=== PATIENT | female | born 1940 | race Caucasian/White ===

== ENCOUNTER 2023-08-21 09:02 | Outpatient (AMB) | payer MEDICARE, SELFPAY ==
--- NOTE | 2023-08-21 09:00 | A.OFFPC_ITS ---
Vital Signs 08/21/23 09:13 Height 5 ft 1 in Weight 199 lb 4 oz BMI 37.6 BP 120/64 Blood Pressure Location Lt brachial Position Sitting Respiration 12 Pulse 88 Pulse Source Pulse Oximeter Temp 97.8 F Pulse Oximetry (%) 95 Oxygen Delivery Method Room Air Intake Visit Reasons: KEVIN from [facility] Intake Note: patient here for new patient visit. 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 Is last menstrual period known: No Post menopausal: No Patient : No Allergies No Known Allergies Allergy (Verified 08/21/23 09:08) Tobacco use date assessed: 08/21/23 Fall risk assessment: 1 Fall in past year Dental Screening Dental Screen Date: 08/21/23 Did you have a dental visit in the last 12 months?: Yes Did you have a dental problem in the last 6 months where you did not have access to dental care?: No Was dental information given to patient?: Patient has dentist HPI HPI Comments History of Present Illness Details This is an 82-year-old female with a past medical history of hypertension, hyperlipidemia, IFG, biliary ductal dilatation, elevated alkaline phosphatase, depression and endometrial cancer who presents to transfer from [facility] primary care. I received limited medical records with some of her diagnostic testing. She is doing well since her last visit in May. Her back has not been bothering her very much. She is on [place] as needed for pain. She also receives Zanaflex to take as needed for flares when she gets muscle spasms. She endorses a history of back pain since 1996. In the past she sought treatment at [facility]. She saw Dr. Bernal. She did physical therapy. 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 She has been fatigued for the past month. During the past week it has improved, but she does not feel back to her baseline. She started taking a B12 supplement, and she thinks it helped. She has a history of B12 deficiency. No fevers, chills, abdominal pain, chest pain or dizziness. She has an appointment with [facility] in November to follow up on elevated alkaline phosphatase level and biliary ductal dilatation. She is on Cymbalta for depression and chronic pain. She feels well on the medication. Hypertension is treated with losartan 100 mg daily. This is well-controlled. Hyperlipidemia is treated with simvastatin 40 mg at bedtime. Her last LDL was 117. Hypothyroidism is treated with 75 mcg daily of levothyroxine. Her TSH was 3.98 in March 2023. Reviewed external labs 04/18/2023: Hemoglobin A1c 5.5% Glucose 102 Creatinine 1.2 GFR 47 Alkaline phosphatase 191 AST 29 ALT 33 Total cholesterol 217 Triglycerides 195 HDL 61 LDL 117 TSH 3.98 WBC 7.7 RBC 4.59 Hemoglobin 13.7 Hematocrit 43.8 Platelet count 433 She had a CTA in 2022 which showed a 1.3 mm outpouching of contrast in the supraclinoid right ICA that could represent a small communicating artery or tiny aneurysm. There was no hemodynamically significant stenosis. She saw Neurosurgery to discuss the possible aneurysm. It was decided to pursue no further follow-up or intervention due to the low risk of rupture. [facility] Medical History (Updated 08/21/23 @ 13:45 by EFRÍAN Granado) Severe obesity (BMI 35.0-39.9) with comorbidity Chronic back pain Osteoarthritis of left knee Hypothyroidism (acquired) Depression History of herpes labialis History of endometrial cancer IFG (impaired fasting glucose) Elevated alkaline phosphatase level Common bile duct dilation Pure hypercholesterolemia Essential hypertension Surgical History (Updated 08/21/23 @ 13:05 by EFRAÍN Granado) History of tonsillectomy History of knee replacement History of cataract surgery Social History Housing: House Patient Tobacco Use Status: Former Tobacco user (40 years ago) Tobacco use type: Cigarette e-Cigarette/Vaping Use: Never Used service: No Current occupational status: retired Current occupational exposures/hazards: No Cognitive needs: No Hearing needs: No Vision needs: Yes Questionnaire PHQ-9 Over the last 2 weeks, how often have you been bothered by any of the following problems? 1. Little interest or pleasure in doing things: several days 2. Feeling down, depressed, or hopeless: not at all 3. Trouble falling or staying asleep, or sleeping too much: several days 4. Feeling tired or having little energy: several days 5. Poor appetite or overeating: not at all 6. Feeling bad about yourself - or that you are a failure or have let yourself or your family down: not at all 7. Trouble concentrating on things, such as reading the newspaper or watching television: not at all 8. Moving or speaking so slowly that other people could have noticed. Or the opposite - being so fidgety or restless that you have been moving around a lot more than usual: not at all 9. Thoughts that you would be better off or of hurting yourself in some way: not at all Total score: 3 Depression Screening Interpretation: Negative Depression Screening Done: Yes 77761 - PHQ-9 Billing: Yes Source: Developed by Drs. Ike Faustin, Katelyn Barrera, Bright Jeffery and colleagues, with an educational heather from [employer]. Thrive Questionnaire Date Thrive assessed: 08/21/23 I am a: Patient What is your living situation today?: I have a steady place to live Within the past 12 months, did the food you bought not last and you didn't have the money to get more?: Never true Within the past 12 months, did you worry whether your food would run out before you got money to buy more?: Never true Do you have trouble paying for medicines?: No Do you have trouble getting transportation to medical appointments?: No Do you have trouble paying your heating and electricity bill?: No Do you have trouble taking care of your child, family member or friend?: No Do you have trouble with day-to-day activities such as bathing, preparing meals, shopping, managing finances, etc.?: No Are you currently unemployed and looking for a job?: No Are you interested in more education?: No Please select the resources that you would like help with: None Currently or been in a relationship where the following occur: No concerns reported THRIVE Score: 0 AUDIT C Alcohol Use Questionnaire (AUDIT-C) 1. How often do you have a drink containing alcohol?: 2-4 times a month 2. How many drinks containing alcohol do you have on a typical day when you are drinking?: 1 or 2 3. How often do you have six or more drinks on one occasion?: Never Total Score: 2 CORAL-7 AMB Questionnaire CORAL-7 Date CORAL - 7 assessed: 08/21/23 Feeling nervous, anxious, or on edge: 0 = Not at all Not being able to stop or control worryin = Not at all Worrying too much about different things: 0 = Not at all Trouble relaxin = Not at all Being so restless that it is hard to sit still: 0 = Not at all Becoming easily annoyed or irritable: 0 = Not at all Feeling afraid as if something awful might happen: 0 = Not at all Total CORAL-7 score (0-4 normal; 5-9 mild; 10-14 moderate; 15-21 severe): 0 Source: Developed by Drs. Ike Faustin, Katelyn Barrera, Bright Jeffery and colleagues, with an educational heather from [employer]. CORAL-7 Assessment Billing CORAL-7 Assessment Tool: CORAL-7 Assessment 19377 Review of Systems Const Details: Constitutional: No unexplained weight loss, fever, chills or night sweats. Eyes: No vision changes, blurry vision, double vision, eye pain, eye redness, eye discharge. ENT: No hearing loss, sneezing, congestion, runny nose or sore throat. Respiratory: No shortness of breath, cough or sputum production. Cardiovascular: No chest pain, chest pressure or chest discomfort. No palpitations or pedal edema. Gastrointestinal: No anorexia, nausea, vomiting or diarrhea. No abdominal pain or blood in stool. Genitourinary: No dysuria, hematuria, urinary frequency. Neurologic: No headache, dizziness, syncope Hematologic/Lymphatics: No bleeding or bruising. Skin: No rash or tick bites. Psychiatric: No depression or anxiety. No SI/HI. Physical exam (Primary Care) Vital Signs: Last Vital Signs Temp 97.8 F 08/21/23 09:13 Pulse 88 08/21/23 09:13 Resp 12 08/21/23 09:13 BP 120/64 08/21/23 09:13 Pulse Ox 95 08/21/23 09:13 Oxygen Delivery Method Room Air 08/21/23 09:13 BMI result Body Mass Index 37.6 Tobacco/Smoking Status: Tobacco use Status Tobacco use date assessed 08/21/23 08/21/23 09:13 Patient Tobacco Use Status Former Tobacco user (40 08/21/23 09:13 years ago) Tobacco use type Cigarette 08/21/23 09:13 e-Cigarette/Vaping Use Never Used 08/21/23 09:13 PHQ-9: PHQ-9 Score PHQ-9: Total score 3 08/21/23 09:31 Depression Screening Interpretation: Negative Thrive Assessment: Date of Thrive Assessment Date Thrive assessed 08/21/23 08/21/23 09:24 Currently or been in a relationship where the following occur: No concerns reported Const Other: Constitutional: Alert, in no distress. Eyes: Pupils are equal, round and reactive to light. Extraocular muscles intact. Neck: Supple, Full range of motion. No lymphadenopathy. Respiratory: Clear to auscultation. Cardiovascular: S1 S2 regular. No murmurs. Gastrointestinal: Abdomen soft, non-tender, non-distended. Normal bowel sounds. No palpable masses. Genitourinary: No costovertebral angle tenderness. Neurologic: No focal neurological deficits. Skin: No rashes Extremities: Warm and well perfused. No clubbing, cyanosis or edema. Psychiatric: Normal mood and affect Assessment and Plan Assessment & Plan (1) Fatigue: Code(s): R53.83 - Other fatigue Plan: She improved, but she has not back to baseline. Ordered labs to evaluate fatigue. (2) IFG (impaired fasting glucose): Comment: Last hemoglobin A1c within normal. Code(s): R73.01 - Impaired fasting glucose (3) Common bile duct dilation: Comment: Follow up as planned with Gastroenterology. Code(s): K83.8 - Other specified diseases of biliary tract (4) Elevated alkaline phosphatase level: Comment: See 3. Repeat labs. Code(s): R74.8 - Abnormal levels of other serum enzymes (5) Pure hypercholesterolemia: Comment: Continue simvastatin. Code(s): E78.00 - Pure hypercholesterolemia, unspecified (6) Essential hypertension: Comment: Controlled. Continue losartan. Code(s): I10 - Essential (primary) hypertension (7) Hypothyroidism (acquired): Code(s): E03.9 - Hypothyroidism, unspecified Plan: Continue levothyroxine. Check TSH. Orders: Orders TSH reflex Free T4 Today E66.9 - Obesity, unspecified, M85.80 - Other specified disorders of bone density and structure, unspecified site, R53.83 - Other fatigue Hemoglobin A1c Today M85.80 - Other specified disorders of bone density and structure, unspecified site, R53.83 - Other fatigue Comprehensive Met. Panel Today M85.80 - Other specified disorders of bone density and structure, unspecified site, R53.83 - Other fatigue Vitamin B12 Today M85.80 - Other specified disorders of bone density and structure, unspecified site, R53.83 - Other fatigue Urine Culture Today M85.80 - Other specified disorders of bone density and structure, unspecified site, R53.83 - Other fatigue UA w Microscopic Today M85.80 - Other specified disorders of bone density and structure, unspecified site, R53.83 - Other fatigue Lyme IgG/IgM w/reflex to WB Today M85.80 - Other specified disorders of bone density and structure, unspecified site, R53.83 - Other fatigue Complete Blood Count Man Dif Today M85.80 - Other specified disorders of bone density and structure, unspecified site, R53.83 - Other fatigue Vitamin D 1,25 dihydroxy Today M85.80 - Other specified disorders of bone density and structure, unspecified site, R53.83 - Other fatigue Medications: New duloxetine 30 mg PO DAILY 90 caps 3RF levothyroxine 75 mcg PO DAILY 90 tabs 3RF simvastatin 40 mg PO BEDTIME 90 tabs 3RF tizanidine 2 mg PO Q8H PRN 30 tabs 0RF muscle spasticity losartan 100 mg PO DAILY 90 tabs 3RF Coding Level of Care Code Est Pt Level 4 (40981) Complex EM visit Add On G2211 Diagnoses Fatigue R53.83 IFG (impaired fasting glucose) R73.01 Common bile duct dilation K83.8 Elevated alkaline phosphatase level R74.8 Pure hypercholesterolemia E78.00 Essential hypertension I10 Hypothyroidism (acquired) E03.9 Additional Codes CORAL-7 Assessment Billing - CORAL-7 Assessment Tool: CORAL-7 Assessment [id number] ([id number])
[2023-08-21 09:13] VITALS: BP 120/64; PULSE 88; RESP 12; TEMP 36.6; O2SAT 95; BMI 37.6
== END 2023-08-21 09:46 | disposition home or self-care (01) ==
PROVIDERS: PCP Physician Assistant Medical; Visit Provider Physician Assistant Medical
DX: R53.83 Other fatigue (principal); R73.01 Impaired fasting glucose; K83.8 Other specified diseases of biliary tract; R74.8 Abnormal levels of other serum enzymes; E78.00 Pure hypercholesterolemia, unspecified; I10 Essential (primary) hypertension; E03.9 Hypothyroidism, unspecified
CPT/HCPCS: 99214; G2211

== ENCOUNTER 2023-08-21 09:48 | Outpatient (REF) | payer MEDICARE, SELFPAY ==
[2023-08-21 11:35] LABS: Appearance Urine Clear; Color Urine Dark Yellow; Glucose Urine UA Negative (Negative); Leukocyte Esterase Urine Trace (Negative); Nitrite Urine Negative (Negative); PH 6.5 (5.0-9.0); Specific Gravity - Urine 1.025 (1.005-1.025); UMIC TRIGGER UA YES; Urine Blood Negative (Negative); Urine Ketones Trace mg/dL (Negative); Urine Protein 30 (1+) mg/dL (Neg-Trace)
[2023-08-21 11:43] LABS: Baso%MD 0.7 %; Hemoglobin 14.3 g/dl (12.0-16.0); IG%MD 0.2 %; Lymph%MD 25.5 %; Mean Corpuscular Volume 91.1 fL (80.0-98.0); Mean Platelet Volume 9.2 fL (9.4-12.3); Mono%MD 7.1 %; Neut%MD 64.5 %; Platelet Count 414 X10*3/uL (160-400); Red Blood Count 4.61 X10*6/uL (4.20-5.50); Red Cell Distribution Width 13.7 % (11.0-16.0)
[2023-08-21 11:50] LABS: Bacteria Urine None Seen (None Seen); RBC Urine 0-2 /HPF (0-2); Squamous Epithelial Cell Urine 0-2 /HPF (0-2); WBC Urine 0-5 /HPF (0-5)
[2023-08-21 11:53] LABS: Estimated Average Glucose 108 mg/dL; Hemoglobin A1c % 5.4 % (<6.0)
[2023-08-21 12:21] LABS: Band Neutrophils Percent 1 % (3-5); Eosinophils Absolute Manual 0.1 X10*3/uL (0.0-0.4); Eosinophils Percent Manual 1 % (0-4); Lymphocytes Absolute Manual 1.7 X10*3/uL (1.2-4.9); Lymphocytes Percent Manual 21 % (20-40); Monocytes Absolute Manual 0.7 X10*3/uL (0.1-1.2); Monocytes Percent Manual 9 % (2-11); Neutrophils Absolute Manual 5.5 X10*3/uL (2.0-8.3); Neutrophils Percent Manual 68 % (45-73)
[2023-08-21 12:22] LABS: Platelet Estimate NORMAL (NORMAL); Platelet Morphology Comment NORMAL; RBC Morphology NORMAL
[2023-08-21 12:25] LABS: Alanine Aminotransferase 36 U/L (0-31); Albumin Level 3.8 g/dL (3.5-5.0); Alkaline Phosphatase 138 U/L (39-117); Anion Gap 13 (12-20); Aspartate Amino Transferase 27 U/L (5-31); Bilirubin Total 0.5 mg/dL (0.0-1.0); Blood Urea Nitrogen 19 mg/dL (9-16); Calcium 9.2 mg/dL (8.4-10.2); Carbon Dioxide 27 mmol/L (22-29); Chloride 106 mmol/L (96-108); Estimated Glomerular Filt Rate > 60; Glucose Random 101 mg/dL (60-115); Potassium 4.5 mmol/L (3.3-5.1); Sodium 141 mmol/L (135-145); Total Protein 6.9 g/dL (6.5-8.0)
[2023-08-21 12:44] LABS: TSH reflex Free T4 1.93 uIU/mL (0.32-4.0)
[2023-08-21 12:48] LABS: Vitamin B12 1316 pg/mL (200-900)
[2023-08-22 09:04] LABS: Lyme Abs Screen <0.90 index
[2023-08-26 00:54] LABS: VITAMIN D (1,25 OH) D3 44 pg/mL; Vit D (1,25-Dihydroxy) Total 44 pg/mL (18-72); Vitamin D (1,25 OH) D2 <8 pg/mL
== END 2023-08-21 09:49 | disposition home or self-care (01) ==
LOC: HO.WFDLDS 09:48
PROVIDERS: Visit Provider Physician Assistant Medical
DX: E66.9 Obesity, unspecified (principal); R53.83 Other fatigue; M85.80 Other specified disorders of bone density and structure, unspecified site
CPT/HCPCS: 36415; 80053; 81001; 82607; 82652; 83036; 84443; 85007; 85027; 86617; 86618; 87086

== ENCOUNTER 2023-10-06 10:53 | Outpatient (AMB) | payer MEDICARE, SELFPAY ==
--- NOTE | 2023-10-06 10:58 | A.OFFPC_ITS ---
Vital Signs 10/06/23 11:07 Height 5 ft 1 in Weight 199 lb 8 oz BMI 37.7 BP 122/68 Blood Pressure Location Lt brachial Position Sitting Respiration 16 Pulse 69 Pulse Source Pulse Oximeter Pulse Oximetry (%) 97 Oxygen Delivery Method Room Air Intake Visit Reasons: taper off duloxetine Intake Note: Discuss tapering off duloxetine. Patient has been off the medication for 5 days. Allergies No Known Allergies Allergy (Verified 10/06/23 11:06) Tobacco use date assessed: 08/21/23 Dental Screening Dental Screen Date: 08/21/23 HPI HPI Comments History of Present Illness Details This is an 82-year-old female with a past medical history of hypertension, hyperlipidemia, IFG, biliary ductal dilatation, elevated alkaline phosphatase, depression and endometrial cancer who presents for follow up. Since her last visit she reported fatigue since starting Cymbalta. I provided her with instructions to taper off of this medication over the phone. She stopped it 5 days ago. She feels a little off since stopping it despite the taper. Her fatigue is much better off of the medication. She does not want to take anything new at this time. Her back has not been bothering her very much. She is on [place] for pain. She also receives Zanaflex to take as needed for flares when she gets muscle spasms. She endorses a history of back pain since 1996. In the past she sought treatment at [facility]. She saw Dr. Bernal. She did physical therapy. 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 She has an appointment with [facility] in November to follow up on elevated alkaline phosphatase level and biliary ductal dilatation. She did not get contacted by [facility] to schedule the ultrasound I ordered. I put in a request to fax it again, and I gave her the number for [facility]ology to schedule it. She denies abdominal pain, nausea, vomiting, diarrhea, unexplained weight loss. Alkaline phosphatase decreased from 191-138 between 04/18/2023 and 08/21/2023. ALT mildly elevated in July at 36 and AST, albumin, total bilirubin normal. Hypertension is treated with losartan 100 mg daily. This is well-controlled. Hyperlipidemia is treated with simvastatin 40 mg at bedtime. Her last LDL was 117. Hypothyroidism is treated with 75 mcg daily of levothyroxine. Her TSH was 3.98 in March 2023. Reviewed external labs 04/18/2023: Hemoglobin A1c 5.5% Glucose 102 Creatinine 1.2 GFR 47 Alkaline phosphatase 191 AST 29 ALT 33 Total cholesterol 217 Triglycerides 195 HDL 61 LDL 117 TSH 3.98 WBC 7.7 RBC 4.59 Hemoglobin 13.7 Hematocrit 43.8 Platelet count 433 She had a CTA in 2022 which showed a 1.3 mm outpouching of contrast in the supraclinoid right ICA that could represent a small communicating artery or tiny aneurysm. There was no hemodynamically significant stenosis. She saw Neurosurgery to discuss the possible aneurysm. It was decided to pursue no further follow-up or intervention due to the low risk of rupture. ROS: Constitutional: No unexplained weight loss, fever, chills, fatigue or night sweats. Eyes: No vision changes, blurry vision, double vision Respiratory: No shortness of breath, cough or sputum production. Cardiovascular: No chest pain, chest pressure or chest discomfort. No palpitations or pedal edema. Gastrointestinal: No anorexia, nausea, vomiting or diarrhea. No abdominal pain or blood in stool. Neurologic: No headache, dizziness, syncope Hematologic/Lymphatics: No bleeding or bruising. No painful lymph nodes. Endocrine: No cold or heat intolerance. No polyuria or polydipsia. Psychiatric: No depression or anxiety. No SI/HI. Physical exam: Constitutional: Alert, in no distress. Head: Normocephalic. Eyes: Pupils are equal, round and reactive to light. Extraocular muscles intact. Neck: Supple, Full range of motion. No lymphadenopathy. Respiratory: Clear to auscultation. Cardiovascular: S1 S2 regular. No murmurs. Gastrointestinal: Abdomen soft, non-tender, non-distended. Normal bowel sounds. No palpable masses. Neurologic: No focal neurological deficits Extremities: Warm and well perfused. No clubbing, cyanosis or edema. Psychiatric: Normal mood and affect COUNT INCLUDES [facility] Medical History (Updated 10/06/23 @ 16:56 by EFRAÍN Granado) Severe obesity (BMI 35.0-39.9) with comorbidity Chronic back pain Osteoarthritis of left knee Hypothyroidism (acquired) Depression History of herpes labialis History of endometrial cancer IFG (impaired fasting glucose) Elevated alkaline phosphatase level Common bile duct dilation Pure hypercholesterolemia Essential hypertension Surgical History (Updated 08/21/23 @ 13:05 by EFRAÍN Granado) History of tonsillectomy History of knee replacement History of cataract surgery Social History Housing: House Patient Tobacco Use Status: Former Tobacco user (40 years ago) Tobacco use type: Cigarette e-Cigarette/Vaping Use: Never Used service: No Current occupational status: retired Current occupational exposures/hazards: No Cognitive needs: No Hearing needs: No Vision needs: Yes Questionnaire Thrive Questionnaire Date Thrive assessed: 08/21/23 CORAL-7 AMB Questionnaire CORAL-7 Date CORAL - 7 assessed: 08/21/23 Source: Developed by Drs. Ike Faustin, Katelyn Barrrea, Bright Jeffery and colleagues, with an educational heather from [employer]. Physical exam (Primary Care) Vital Signs: Last Vital Signs Pulse 69 10/06/23 11:07 Resp 16 10/06/23 11:07 BP 122/68 10/06/23 11:07 Pulse Ox 97 10/06/23 11:07 Oxygen Delivery Method Room Air 10/06/23 11:07 BMI result Body Mass Index 37.7 Tobacco/Smoking Status: Tobacco use Status Tobacco use date assessed 08/21/23 10/06/23 11:00 Patient Tobacco Use Status Former Tobacco user (40 10/06/23 11:00 years ago) Tobacco use type Cigarette 10/06/23 11:00 e-Cigarette/Vaping Use Never Used 10/06/23 11:00 Thrive Assessment: Date of Thrive Assessment Date Thrive assessed 08/21/23 10/06/23 11:00 Assessment and Plan Assessment & Plan (1) Chronic back pain: Code(s): M54.9 - Dorsalgia, unspecified; G89.29 - Other chronic pain Qualifiers: Back pain location: low back pain Back pain laterality: bilateral Sciatica presence: without sciatica Qualified Code(s): M54.50 - Low back pain, unspecified; G89.29 - Other chronic pain (2) Hypothyroidism (acquired): Code(s): E03.9 - Hypothyroidism, unspecified (3) IFG (impaired fasting glucose): Code(s): R73.01 - Impaired fasting glucose (4) Pure hypercholesterolemia: Code(s): E78.00 - Pure hypercholesterolemia, unspecified (5) Essential hypertension: Code(s): I10 - Essential (primary) hypertension (6) Common bile duct dilation: Code(s): K83.8 - Other specified diseases of biliary tract (7) Elevated alkaline phosphatase level: Code(s): R74.8 - Abnormal levels of other serum enzymes Plan Chronic back pain Stable at this time. She discontinued Cymbalta due to fatigue. She does not want to try new medications. She will use Zanaflex as needed for flares. Continue prescription for hydrocodone-acetaminophen. Hypothyroidism Euthyroid. Continue levothyroxine. Impaired fasting glucose Last hemoglobin A1c normal. Recommended low carb, low sugar diet. Hyperlipidemia Continue simvastatin 40 mg daily. Hypertension Controlled. Continue low-sodium diet and avoidance of caffeine. Continue losartan 100 mg daily. Elevated alkaline phosphatase, common bile duct dilatation She has follow up with Gastroenterology in November. Her alk-phos trended down which is reassuring as well as the fact that she has no symptoms at this time that are concerning. I would like her to have an ultrasound completed prior to that to recheck the appearance of the common bile duct. Order faxed to [facility]. Patient given phone number to call [facility]. Follow up in 3 months. Coding Level of Care Code Est Pt Level 4 (23059) Complex EM visit Add On G2211 Diagnoses Chronic bilateral low back pain without sciatica M54.50; G89.29 Back pain location: low back pain Back pain laterality: bilateral Sciatica presence: without sciatica Hypothyroidism (acquired) E03.9 IFG (impaired fasting glucose) R73.01 Pure hypercholesterolemia E78.00 Essential hypertension I10 Common bile duct dilation K83.8 Elevated alkaline phosphatase level R74.8
[2023-10-06 11:07] VITALS: BP 122/68; PULSE 69; RESP 16; O2SAT 97; BMI 37.7
== END 2023-10-06 11:36 | disposition home or self-care (01) ==
PROVIDERS: PCP Physician Assistant Medical; Visit Provider Physician Assistant Medical
DX: M54.50 Low back pain, unspecified (principal); G89.29 Other chronic pain; E03.9 Hypothyroidism, unspecified; R73.01 Impaired fasting glucose; E78.00 Pure hypercholesterolemia, unspecified; I10 Essential (primary) hypertension; K83.8 Other specified diseases of biliary tract; R74.8 Abnormal levels of other serum enzymes
CPT/HCPCS: 99214; G2211

== ENCOUNTER 2024-01-29 11:29 | Outpatient (AMB) | payer MEDICARE, SELFPAY ==
--- NOTE | 2024-01-29 11:43 | MHC.PC.OV ---
Vital Signs 01/29/24 11:45 01/29/24 12:02 01/29/24 12:03 Height 5 ft 1 in Weight 201 lb BMI 38.0 BP 195/75 H 166/78 H 160/78 H Blood Pressure Location Lt brachial Lt brachial Rt brachial Position Sitting Sitting Sitting Respiration 14 Pulse 67 Pulse Source Pulse Oximeter Temp 97.2 F Temp Source Skin Pulse Oximetry (%) 97 Oxygen Delivery Method Room Air Intake Visit Reasons: 3 months med follow up Intake Note: follow up on meds Laboratory Analyst Required: No Allergies No Known Allergies Allergy (Verified 01/29/24 11:45) Tobacco use date assessed: 08/21/23 Dental Screening Dental Screen Date: 08/21/23 HPI HPI Comments History of Present Illness Details This is an 83-year-old female with a past medical history of hypertension, hyperlipidemia, IFG, biliary ductal dilatation, elevated alkaline phosphatase, depression and endometrial cancer who presents for follow up. The patient says she is glad she had appointment today because she has urinary symptoms the past 2-3 days. She endorses urinary frequency, urgency and feeling some discomfort and flushing when she urinates. She has not been sleeping well. She denies fevers, chills, vomiting, flank pain, abdominal pain. She had bruising on her face today. Patient says she fell after tripping in her yard while picking up sticks in her slippers a week ago. No LOC, vision change, headache, dizziness or seizure. The bruising is improving. Her right wrist has a little sore but is also getting better, and she has no issues with daily activities. The patient's blood pressure is usually well-controlled on losartan, but it was quite elevated today initially. Again she reported not sleeping well the last 2-3 nights , and she was also anxious because of her UTI symptoms. She reports that when she thought she had a UTI it turned out to be endometrial cancer in the past and she is very worried. She denies vaginal bleeding and blood in her urine. We spoke for a while and she was given cold water to drink and her blood pressure decreased to 166/78 on her left arm and 160/78 on her right arm. Patient denied chest pain, blurry vision, headache, dizziness, numbness, weakness, tingling and shortness of breath. Chronic back pain- due to unreliable availability of Wittmann she was switched to Percocet 5-325 mg every 8 hours as needed for pain. She also receives Zanaflex to take as needed for flares when she gets muscle spasms. She endorses a history of back pain since 1996. In the past she sought treatment at [facility]. She saw Dr. Bernal. She did physical therapy. 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 Hyperlipidemia is treated with simvastatin 40 mg at bedtime. Her last LDL was 117. Hypothyroidism is treated with 75 mcg daily of levothyroxine. Her TSH was 3.98 in March 2023. She had a CTA in 2022 which showed a 1.3 mm outpouching of contrast in the supraclinoid right ICA that could represent a small communicating artery or tiny aneurysm. There was no hemodynamically significant stenosis. She saw Neurosurgery to discuss the possible aneurysm. It was decided to pursue no further follow-up or intervention due to the low risk of rupture. ROS: Constitutional: No unexplained weight loss, fever, chills, fatigue or night sweats. Eyes: No vision changes, blurry vision, double vision Respiratory: No shortness of breath, cough or sputum production. Cardiovascular: No chest pain, chest pressure or chest discomfort. No palpitations or pedal edema. Gastrointestinal: No anorexia, nausea, vomiting or diarrhea. No abdominal pain or blood in stool. Neurologic: No headache, dizziness, syncope Psychiatric: +situational anxiety today Physical exam: Constitutional: Alert, in no distress. Head: Normocephalic. Tender, half adan shaped area of light purple ecchymosis below the right eye and mild ecchymosis of the right eyelid. Eyes: Pupils are equal, round and reactive to light. Extraocular muscles intact. Neck: Supple, Full range of motion. No lymphadenopathy. Respiratory: Clear to auscultation. Cardiovascular: S1 S2 regular. No murmurs. Gastrointestinal: Abdomen soft, non-tender, non-distended. Normal bowel sounds. No palpable masses. : Absence of CVA tenderness bilaterally. Neurologic: No focal neurological deficits Extremities: Warm and well perfused. No clubbing, cyanosis or edema. Wrists nontender to palpation and full range of motion present. Psychiatric: Normal mood and affect [facility] Medical History (Updated 10/06/23 @ 16:56 by EFRAÍN Granado) Severe obesity (BMI 35.0-39.9) with comorbidity Chronic back pain Osteoarthritis of left knee Hypothyroidism (acquired) Depression History of herpes labialis History of endometrial cancer IFG (impaired fasting glucose) Elevated alkaline phosphatase level Common bile duct dilation Pure hypercholesterolemia Essential hypertension Surgical History (Updated 08/21/23 @ 13:05 by EFRAÍN Granado) History of tonsillectomy History of knee replacement History of cataract surgery Social History Housing: House Patient Tobacco Use Status: Former Tobacco user (40 years ago) Tobacco use type: Cigarette e-Cigarette/Vaping Use: Never Used service: No Current occupational status: retired Current occupational exposures/hazards: No Cognitive needs: No Hearing needs: No Vision needs: Yes Questionnaire PHQ-9 Over the last 2 weeks, how often have you been bothered by any of the following problems? 1. Little interest or pleasure in doing things: not at all 2. Feeling down, depressed, or hopeless: not at all 3. Trouble falling or staying asleep, or sleeping too much: not at all 4. Feeling tired or having little energy: several days 5. Poor appetite or overeating: not at all 6. Feeling bad about yourself - or that you are a failure or have let yourself or your family down: not at all 7. Trouble concentrating on things, such as reading the newspaper or watching television: not at all 8. Moving or speaking so slowly that other people could have noticed. Or the opposite - being so fidgety or restless that you have been moving around a lot more than usual: not at all 9. Thoughts that you would be better off or of hurting yourself in some way: not at all Total score: 1 36533 - PHQ-9 Billing: Yes Source: Developed by Drs. Ike Faustin, Katelyn Barrera, Bright Jeffery and colleagues, with an educational heather from [employer] Thrive Questionnaire Date Thrive assessed: 01/29/24 I am a: Patient What is your living situation today?: I have a steady place to live Within the past 12 months, did the food you bought not last and you didn't have the money to get more?: Never true Within the past 12 months, did you worry whether your food would run out before you got money to buy more?: Never true Do you have trouble paying for medicines?: No Do you have trouble getting transportation to medical appointments?: No Do you have trouble paying your heating and electricity bill?: No Do you have trouble taking care of your child, family member or friend?: No Do you have trouble with day-to-day activities such as bathing, preparing meals, shopping, managing finances, etc.?: No Are you currently unemployed and looking for a job?: No Are you interested in more education?: No Please select the resources that you would like help with: None Currently or been in a relationship where the following occur: No concerns reported THRIVE Score: 0 AUDIT C Alcohol Use Questionnaire (AUDIT-C) 1. How often do you have a drink containing alcohol?: Monthly or less 2. How many drinks containing alcohol do you have on a typical day when you are drinking?: 1 or 2 3. How often do you have six or more drinks on one occasion?: Never Total Score: 1 CORAL-7 AMB Questionnaire CORAL-7 Date CORAL - 7 assessed: 01/29/24 Feeling nervous, anxious, or on edge: 0 = Not at all Not being able to stop or control worryin = Not at all Worrying too much about different things: 0 = Not at all Trouble relaxin = Not at all Being so restless that it is hard to sit still: 0 = Not at all Becoming easily annoyed or irritable: 0 = Not at all Feeling afraid as if something awful might happen: 0 = Not at all Total CORAL-7 score (0-4 normal; 5-9 mild; 10-14 moderate; 15-21 severe): 0 Source: Developed by Drs. Ike Faustin, Katelyn Barrera, Bright Jeffery and colleagues, with an educational heather from [employer] CORAL-7 Assessment Billing CORAL-7 Assessment Tool: CORAL-7 Assessment 25448 Physical exam (Primary Care) Vital Signs: Last Vital Signs Temp 97.2 F 01/29/24 11:45 Pulse 67 01/29/24 11:45 Resp 14 01/29/24 11:45 BP 195/75 H 01/29/24 11:45 Pulse Ox 97 01/29/24 11:45 Oxygen Delivery Method Room Air 01/29/24 11:45 BMI result Body Mass Index 38.0 Tobacco/Smoking Status: Tobacco use Status Tobacco use date assessed 08/21/23 01/29/24 11:45 Patient Tobacco Use Status Former Tobacco user (40 01/29/24 11:45 years ago) Tobacco use type Cigarette 01/29/24 11:45 e-Cigarette/Vaping Use Never Used 01/29/24 11:45 PHQ-9: PHQ-9 Score PHQ-9: Total score 1 01/29/24 11:45 Thrive Assessment: Date of Thrive Assessment Date Thrive assessed 01/29/24 01/29/24 11:45 Currently or been in a relationship where the following occur: No concerns reported Results AMB Urinalysis Dipstick UR Leukocytes Negative Last Edit by Zander Alanis MA on 01/29/24 12:30 UR Nitrite Negative Last Edit by Zander Alanis MA on 01/29/24 12:30 UR Urobilinogen Normal Last Edit by Zander Alanis MA on 01/29/24 12:30 UR Protein Negative Last Edit by Zander Alanis MA on 01/29/24 12:30 UR Ph 5.5 Last Edit by Zander Alanis MA on 01/29/24 12:30 UR Blood Trace Last Edit by Zander Alanis MA on 01/29/24 12:30 UR Specific [place] 1.020 Last Edit by Zander Alanis MA on 01/29/24 12:30 UR Ketone Negative Last Edit by Zander Alanis MA on 01/29/24 12:30 UR Bilirubin Negative Last Edit by Zander Alanis MA on 01/29/24 12:30 UR Glucose Negative Last Edit by Zander Alanis MA on 01/29/24 12:30 Coding Level of Care Code Est Pt Level 4 (07192) Complex EM visit Add On G2211 Diagnoses UTI symptoms R39.9 Essential hypertension I10 Fall W19.XXXA Additional Codes CORAL-7 Assessment Billing - CORAL-7 Assessment Tool: CORAL-7 Assessment 01417 ([id number]) PHQ-9 - 27412 - PHQ-9 Billing: Yes ([id number]) Assessment & Plan Assessment & Plan (1) UTI symptoms: Code(s): R39.9 - Unspecified symptoms and signs involving the genitourinary system Plan: Patient's urine dip is positive for microscopic blood and given symptoms she will be started on antibiotics for urinary tract infection. Take Macrobid 1 pill twice daily. Complete entire course of medication unless otherwise directed. She has probiotic +cranberry at home that she will start. Warning signs reviewed with the patient including progression of UTI symptoms to flank pain, fevers, chills, nausea, vomiting and to go to the ER if she develops any of the symptoms. She will follow up with me in 10 days. (2) Essential hypertension: Code(s): I10 - Essential (primary) hypertension Category: Medical Plan: Her blood pressure is elevated today which may be due to anxiety over her symptoms and poor sleep the last few days. She will continue losartan 100 mg and follow up in 10 days for reassessment. Recommended avoidance of caffeine and a low-sodium diet. Warning signs warranting ER evaluation reviewed with the patient. (3) Fall: Code(s): W19.XXXA - Unspecified fall, initial encounter Plan: The patient had no serious injury. Fall prevention reviewed. If she is going to be working outside she needs to wear supportive shoes rather than slippers. She understands. Orders: Orders AMB Urinalysis Dipstick Today Z13.9 - Encounter for screening, unspecified Basic Metabolic Panel Today I10 - Essential (primary) hypertension, R39.9 - Unspecified symptoms and signs involving the genitourinary system Complete Blood Count Auto Diff Today I10 - Essential (primary) hypertension, R39.9 - Unspecified symptoms and signs involving the genitourinary system Hemoglobin A1c Today E11.9 - Type 2 diabetes mellitus without complications, I10 - Essential (primary) hypertension, R39.9 - Unspecified symptoms and signs involving the genitourinary system Urine Culture Today R39.9 - Unspecified symptoms and signs involving the genitourinary system TSH reflex Free T4 Today E03.9 - Hypothyroidism, unspecified UA w Microscopic Today R39.9 - Unspecified symptoms and signs involving the genitourinary system Medications: New nitrofurantoin monohyd/m-cryst 100 mg (Macrobid) must administer with a meal/food 100 mg PO Q12H 7 days 14 caps 0RF
[2024-01-29 11:45] VITALS: BP 195/75; PULSE 67; RESP 14; TEMP 36.2; O2SAT 97; BMI 38.0
[2024-01-29 12:02] VITALS: BP 166/78
[2024-01-29 12:03] VITALS: BP 160/78
== END 2024-01-29 12:35 | disposition home or self-care (01) ==
PROVIDERS: PCP Physician Assistant Medical; Visit Provider Physician Assistant Medical
DX: R39.9 Unspecified symptoms and signs involving the genitourinary system (principal); I10 Essential (primary) hypertension; W19.XXXA Unspecified fall, initial encounter; Z13.9 Encounter for screening, unspecified

== ENCOUNTER 2024-01-29 11:29 | Outpatient (REF) | payer MEDICARE, SELFPAY ==
[2024-01-29 17:55] LABS: Appearance Urine Clear; Color Urine Dark Yellow; Glucose Urine UA Negative (Negative); Leukocyte Esterase Urine Moderate (2+) (Negative); Nitrite Urine Negative (Negative); PH 5.5 (5.0-9.0); UMIC TRIGGER UA YES; Urine Blood Small (1+) (Negative); Urine Ketones Negative (Negative); Urine Protein Negative (Neg-Trace)
[2024-01-29 19:28] LABS: Bacteria Urine None Seen (None Seen); Hyaline Casts Urine 0-2 /LPF (0-2); Squamous Epithelial Cell Urine 0-2 /HPF (0-2); WBC Urine >50 /HPF (0-5)
== END 2024-01-29 11:30 | disposition home or self-care (01) ==
LOC: HO.LNP 11:29
PROVIDERS: PCP Physician Assistant Medical; Visit Provider Physician Assistant Medical
DX: R31.29 Other microscopic hematuria (principal); I10 Essential (primary) hypertension; E11.9 Type 2 diabetes mellitus without complications; E03.9 Hypothyroidism, unspecified; Z79.899 Other long term (current) drug therapy; Z91.81 History of falling
CPT/HCPCS: 36415; 80048; 81001; 81002; 83036; 84443; 85025; 87086; 96127; 99212

== ENCOUNTER 2024-01-29 12:52 | Outpatient (REF) | payer MEDICARE, SELFPAY ==
[2024-01-29 14:01] LABS: MANUAL DIFF FLAG NO
[2024-01-29 14:07] LABS: Basophils Absolute Auto 0.1 X10*3/uL (0.0-0.2); Basophils Percent Auto 0.5 % (0-2); Eosinophils Absolute Auto 0.2 X10*3/uL (0.0-0.4); Eosinophils Percent Auto 1.7 % (0-4); Hematocrit 39.6 % (37.0-47.0); Hemoglobin 13.5 g/dl (12.0-16.0); Imm Gran Abs Auto 0.03 X10*3/uL (0.00-0.03); Imm Gran Pct Auto 0.3 % (0.0-0.4); Lymphocytes Absolute Auto 2.5 X10*3/uL (1.2-4.9); Lymphocytes Percent Auto 25.6 % (20-40); Mean Corpuscular HGB Conc 34.1 g/dl (31.0-35.0); Mean Corpuscular Hemoglobin 30.7 pg (27.0-33.0); Mean Platelet Volume 8.9 fL (9.4-12.3); Monocytes Absolute Auto 0.6 X10*3/uL (0.1-1.2); Monocytes Percent Auto 5.6 % (2-11); Neutrophils Absolute Auto 6.5 x10*3/uL (2.0-8.3); Neutrophils Percent Auto 66.3 % (45-73); Platelet Count 373 X10*3/uL (160-400); Red Cell Distribution Width 13.6 % (11.0-16.0); White Blood Count 9.8 X10*3/uL (4.8-10.8)
[2024-01-29 14:24] LABS: Estimated Average Glucose 105 mg/dL; Hemoglobin A1c % 5.3 % (<6.0); Total Hemoglobin (HGBA1C) 3367.6978 umol/L
[2024-01-29 14:30] LABS: Anion Gap 13 (12-20); Blood Urea Nitrogen 17 mg/dL (9-16); Calcium 9.7 mg/dL (8.4-10.2); Carbon Dioxide 27 mmol/L (22-29); Chloride 105 mmol/L (96-108); Estimated Glomerular Filt Rate > 60; Glucose Random 94 mg/dL (60-115); Potassium 4.4 mmol/L (3.3-5.1); Sodium 141 mmol/L (135-145)
[2024-01-29 14:41] LABS: Appearance Urine Clear; Color Urine Yellow; Glucose Urine UA Negative (Negative); Leukocyte Esterase Urine Moderate (2+) (Negative); Nitrite Urine Negative (Negative); PH 5.5 (5.0-9.0); Specific Gravity - Urine 1.015 (1.005-1.025); UMIC TRIGGER UA YES; Urine Blood Trace (Negative); Urine Ketones Negative (Negative); Urine Protein Negative (Neg-Trace)
[2024-01-29 14:46] LABS: Bacteria Urine None Seen (None Seen); Hyaline Casts Urine 0-2 /LPF (0-2); Squamous Epithelial Cell Urine 0-2 /HPF (0-2); WBC Urine >50 /HPF (0-5)
[2024-01-29 14:46] LABS: TSH reflex Free T4 1.43 uIU/mL (0.32-4.0)
== END 2024-01-29 12:53 | disposition home or self-care (01) ==
LOC: HO.WFDLDS 12:52
PROVIDERS: Visit Provider Physician Assistant Medical
DX: Z13.89 Encounter for screening for other disorder (principal)
CPT/HCPCS: 36415; 80048; 81001; 83036; 84443; 85025; 87086

== ENCOUNTER 2024-02-09 11:12 | Outpatient (REF) | payer MEDICARE, SELFPAY ==
[2024-02-09 14:18] LABS: Appearance Urine Cloudy; Color Urine Dark Yellow; Glucose Urine UA Negative (Negative); Leukocyte Esterase Urine Negative (Negative); Nitrite Urine Negative (Negative); PH 5.5 (5.0-9.0); Urine Blood Negative (Negative); Urine Ketones Negative (Negative); Urine Protein Negative (Neg-Trace)
[2024-02-09 14:23] LABS: Bacteria Urine None Seen (None Seen); Hyaline Casts Urine 0-2 /LPF (0-2); RBC Urine 0-2 /HPF (0-2); Squamous Epithelial Cell Urine 0-2 /HPF (0-2); WBC Urine 0-5 /HPF (0-5)
== END 2024-02-09 11:13 | disposition home or self-care (01) ==
LOC: HO.LNP 11:12
PROVIDERS: PCP Physician Assistant Medical; Visit Provider Physician Assistant Medical
DX: R35.0 Frequency of micturition (principal); R39.9 Unspecified symptoms and signs involving the genitourinary system; I10 Essential (primary) hypertension
CPT/HCPCS: 81001; 81002; 87086; 99212

== ENCOUNTER 2024-02-09 11:12 | Outpatient (AMB) | payer MEDICARE, SELFPAY ==
--- NOTE | 2024-02-09 11:30 | A.OFFPC_ITS ---
Vital Signs 02/09/24 11:34 Height 5 ft 1 in Weight 202 lb 2 oz BMI 38.2 BP 142/78 H Blood Pressure Location Rt brachial Position Sitting Respiration 14 Pulse 66 Pulse Source Pulse Oximeter Pulse Oximetry (%) 97 Oxygen Delivery Method Room Air Intake Visit Reasons: follow up HTN and UTI Intake Note: follow up on htn and uti, patient has no uti sx Electrocardiogram Technician Required: No Allergies No Known Allergies Allergy (Verified 02/09/24 11:30) Tobacco use date assessed: 08/21/23 Fall risk assessment: 1 Fall in past year Last assessed Fall Risk: 02/09/24 Dental Screening Dental Screen Date: 08/21/23 Did you have a dental visit in the last 12 months?: Yes Did you have a dental problem in the last 6 months where you did not have access to dental care?: No Was dental information given to patient?: Patient has dentist HPI HPI Comments History of Present Illness Details This is an 83-year-old female with a past medical history of hypertension, hyperlipidemia, IFG, biliary ductal dilatation, elevated alkaline phosphatase, depression and endometrial cancer presents for re-evaluation after being seen on 01/29/2024 for UTI symptoms and elevated blood pressure that day. Urinalysis was positive for leuks and blood. Urine culture showed urogenital contamination. She was treated with a 7 day course of nitrofurantoin. She reports all of her symptoms have since resolved, and she completed the antibiotics. She denies vaginal bleeding. She feels less anxious today, but she was still a bit stressed about coming into the office. Her blood pressure is 142/78. She is taking losartan 100 mg daily for hypertension. No headaches, chest pain, dizziness or blurry vision. ROS: Constitutional: No unexplained weight loss, fever, chills, fatigue or night sweats. Eyes: No vision changes, blurry vision, double vision Respiratory: No shortness of breath Cardiovascular: No chest pain Gastrointestinal: No anorexia, nausea, vomiting or diarrhea. No abdominal pain Genitourinary: No dysuria, hematuria, urinary frequency. Neurologic: No headache, dizziness, syncope Endocrine: No cold or heat intolerance. No polyuria or polydipsia. Physical exam: Constitutional: Alert, in no distress. Respiratory: Clear to auscultation. Cardiovascular: S1 S2 regular. No murmurs. Gastrointestinal: Abdomen soft, non-tender, non-distended. Normal bowel sounds. No palpable masses. Genitourinary: No costovertebral angle tenderness. Neurologic: No focal neurological deficits. Extremities: Warm and well perfused. No clubbing, cyanosis or edema [facility] Medical History (Updated 02/09/24 @ 13:39 by EFRAÍN Granado) Urinary frequency Severe obesity (BMI 35.0-39.9) with comorbidity Chronic back pain Osteoarthritis of left knee Hypothyroidism (acquired) Depression History of herpes labialis History of endometrial cancer IFG (impaired fasting glucose) Elevated alkaline phosphatase level Common bile duct dilation Pure hypercholesterolemia Essential hypertension Surgical History (Updated 08/21/23 @ 13:05 by EFRAÍN Granado) History of tonsillectomy History of knee replacement History of cataract surgery Social History Housing: House Patient Tobacco Use Status: Former Tobacco user (40 years ago) Tobacco use type: Cigarette e-Cigarette/Vaping Use: Never Used service: No Current occupational status: retired Current occupational exposures/hazards: No Cognitive needs: No Hearing needs: No Vision needs: Yes Questionnaire PHQ-9 Over the last 2 weeks, how often have you been bothered by any of the following problems? 35779 - PHQ-9 Billing: Patient declined-do not bill Source: Developed by Drs. Ike Faustin, Katelyn Barrera, Bright Jeffery and colleagues, with an educational heather from [employer]. Thrive Questionnaire Date Thrive assessed: 02/09/24 I am a: Patient What is your living situation today?: I have a steady place to live Within the past 12 months, did the food you bought not last and you didn't have the money to get more?: Never true Within the past 12 months, did you worry whether your food would run out before you got money to buy more?: Never true Do you have trouble paying for medicines?: No Do you have trouble getting transportation to medical appointments?: No Do you have trouble paying your heating and electricity bill?: No Do you have trouble taking care of your child, family member or friend?: No Do you have trouble with day-to-day activities such as bathing, preparing meals, shopping, managing finances, etc.?: No Are you currently unemployed and looking for a job?: No Are you interested in more education?: No Please select the resources that you would like help with: None Currently or been in a relationship where the following occur: No concerns reported THRIVE Score: 0 CORAL-7 AMB Questionnaire COARL-7 Date CORAL - 7 assessed: 01/29/24 Source: Developed by Drs. Ike Faustin, Katelyn Barrera, Bright Jeffery and colleagues, with an educational heather from [employer]. Physical exam (Primary Care) Vital Signs: Last Vital Signs Pulse 66 02/09/24 11:34 Resp 14 02/09/24 11:34 BP 142/78 H 02/09/24 11:34 Pulse Ox 97 02/09/24 11:34 Oxygen Delivery Method Room Air 02/09/24 11:34 BMI result Body Mass Index 38.2 Tobacco/Smoking Status: Tobacco use Status Tobacco use date assessed 08/21/23 02/09/24 11:32 Patient Tobacco Use Status Former Tobacco user (40 02/09/24 11:32 years ago) Tobacco use type Cigarette 02/09/24 11:32 e-Cigarette/Vaping Use Never Used 02/09/24 11:32 Thrive Assessment: Date of Thrive Assessment Date Thrive assessed 02/09/24 02/09/24 11:32 Currently or been in a relationship where the following occur: No concerns reported Results AMB Urinalysis Dipstick UR Leukocytes Negative Last Edit by Zander Alanis MA on 02/09/24 12:10 UR Nitrite Negative Last Edit by Zander Alanis MA on 02/09/24 12:10 UR Urobilinogen Normal Last Edit by Zander Alanis MA on 02/09/24 12:10 UR Protein Negative Last Edit by Zander Alanis MA on 02/09/24 12:10 UR Ph 5.5 Last Edit by Zander Alanis MA on 02/09/24 12:10 UR Blood Negative Last Edit by Zander Alanis MA on 02/09/24 12:10 UR Specific [place] 1.025 Last Edit by Zander Alanis MA on 02/09/24 12:1 0 UR Ketone Negative Last Edit by Zander Alanis MA on 02/09/24 12:10 UR Bilirubin Negative Last Edit by Zander Alanis MA on 02/09/24 12:10 UR Glucose Negative Last Edit by Zander Alanis MA on 02/09/24 12:10 Results Reviewed Results Reviewed: Laboratory Last Values Urine pH (Clinic) 5.5 02/09/24 12:05 Specific [place] (Clinic) 1.025 02/09/24 12:05 Ur Protein (Clinic) Negative 02/09/24 12:05 Ur Ketones (Clinic) Negative 02/09/24 12:05 Urine Blood (Clinic) Negative 02/09/24 12:05 Urine Nitrite Negative 02/09/24 12:05 Urine Bilirubin (Clinic) Negative 02/09/24 12:05 Urobilinogen (Clinic) Normal 02/09/24 12:05 Leukocyte Esterase (Clinic) Negative 02/09/24 12:05 Urine Glucose (Clinic) Negative 02/09/24 12:05 Coding Level of Care Code Est Pt Level 4 (13795) Complex EM visit Add On G2211 Diagnoses Essential hypertension I10 Urinary frequency R35.0 Assessment & Plan Assessment & Plan (1) Essential hypertension: Code(s): I10 - Essential (primary) hypertension Category: Medical (2) Urinary frequency: Code(s): R35.0 - Frequency of micturition Category: Medical Plan Urine dip negative today. I sent it out to confirm no further hematuria. Patient advised to call if symptoms return. Systolic BP mildly elevated today. She will continue losartan and restrict sodium and caffeine in her diet. Follow up in 8 weeks for re-evaluation. Orders: Orders UA w Microscopic Today R39.9 - Unspecified symptoms and signs involving the genitourinary system Urine Culture Today R39.9 - Unspecified symptoms and signs involving the genitourinary system AMB Urinalysis Dipstick Today Z13.9 - Encounter for screening, unspecified
[2024-02-09 11:34] VITALS: BP 142/78; PULSE 66; RESP 14; O2SAT 97; BMI 38.2
== END 2024-02-09 12:07 | disposition home or self-care (01) ==
PROVIDERS: PCP Physician Assistant Medical; Visit Provider Physician Assistant Medical
DX: I10 Essential (primary) hypertension (principal); R35.0 Frequency of micturition; Z13.9 Encounter for screening, unspecified

== ENCOUNTER 2024-04-15 15:14 | Outpatient (AMB) | payer MEDICARE, SELFPAY ==
--- NOTE | 2024-04-15 15:17 | A.OFFPC_ITS ---
Vital Signs 04/15/24 15:19 Height 5 ft 1 in Weight 203 lb 8 oz BMI 38.4 BP 124/66 Blood Pressure Location Rt brachial Position Sitting Respiration 12 Pulse 75 Pulse Source Pulse Oximeter Temp 96.9 F Temp Source Oral Pulse Oximetry (%) 97 Oxygen Delivery Method Room Air Intake Visit Reasons: med review Intake Note: follow up med review Retail Wireless Sales Consultant Required: No Allergies No Known Allergies Allergy (Verified 04/15/24 15:17) Tobacco use date assessed: 04/15/24 Fall risk assessment: 1 Fall in past year Last assessed Fall Risk: 04/15/24 Dental Screening Dental Screen Date: 04/15/24 Did you have a dental visit in the last 12 months?: No Did you have a dental problem in the last 6 months where you did not have access to dental care?: No Was dental information given to patient?: Patient declined HPI HPI Comments History of Present Illness Details This is an 83-year-old female with a past medical history of hypertension, hyperlipidemia, IFG, biliary ductal dilatation, elevated alkaline phosphatase, depression and endometrial cancer who presents for follow up. Her back pain has been stable. She is on Percocet for pain. She also receives Zanaflex to take as needed for flares when she gets muscle spasms. She endorses a history of back pain since 1996. In the past she sought treatment at [facility]. She saw Dr. Bernal. She did physical therapy. 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 She had an appointment with [facility] in November to follow up on elevated alkaline phosphatase level and biliary ductal dilatation. Patient says she did have the ultrasound completed, and they told her she has gallstones. She is not planning to pursue elective surgery at this time. She did not get contacted by [facility] to schedule the ultrasound I ordered. I put in a request to fax it again, and I gave her the number for [facility] radiology to schedule it. She denies abdominal pain, nausea, vomiting, diarrhea, unexplained weight loss. Alkaline phosphatase decreased from 191-138 between 04/18/2023 and 08/21/2023. ALT mildly elevated in July at 36 and AST, albumin, total bilirubin normal. Hypertension is treated with losartan 100 mg daily. This is well-controlled. Hyperlipidemia is treated with simvastatin 40 mg at bedtime. Her last LDL was 117. Hypothyroidism is treated with 75 mcg daily of levothyroxine. TSH normal 02/13/2024. Reviewed external labs 04/18/2023: Hemoglobin A1c 5.5% Glucose 102 Creatinine 1.2 GFR 47 Alkaline phosphatase 191 AST 29 ALT 33 Total cholesterol 217 Triglycerides 195 HDL 61 LDL 117 TSH 3.98 WBC 7.7 RBC 4.59 Hemoglobin 13.7 Hematocrit 43.8 Platelet count 433 She had a CTA in 2022 which showed a 1.3 mm outpouching of contrast in the supraclinoid right ICA that could represent a small communicating artery or tiny aneurysm. There was no hemodynamically significant stenosis. She saw Neurosurgery to discuss the possible aneurysm. It was decided to pursue no further follow-up or intervention due to the low risk of rupture. ROS: Constitutional: No unexplained weight loss, fever, chills, fatigue or night sweats. Eyes: No vision changes, blurry vision, double vision Respiratory: No shortness of breath, cough or sputum production. Cardiovascular: No chest pain, chest pressure or chest discomfort. No palpitations or pedal edema. Gastrointestinal: No anorexia, nausea, vomiting or diarrhea. No abdominal pain or blood in stool. Neurologic: No headache, dizziness, syncope Hematologic/Lymphatics: No bleeding or bruising. No painful lymph nodes. Endocrine: No cold or heat intolerance. No polyuria or polydipsia. Psychiatric: No depression or anxiety. No SI/HI. Physical exam: Constitutional: Alert, in no distress. Head: Normocephalic. Eyes: Pupils are equal, round and reactive to light. Extraocular muscles intact. Neck: Supple, Full range of motion. No lymphadenopathy. Respiratory: Clear to auscultation. Cardiovascular: S1 S2 regular. No murmurs. Gastrointestinal: Abdomen soft, non-tender, non-distended. Normal bowel sounds. No palpable masses. Neurologic: No focal neurological deficits Extremities: Warm and well perfused. No clubbing, cyanosis or edema. Psychiatric: Normal mood and affect [facility] Medical History (Updated 04/15/24 @ 16:57 by EFRAÍN Granado) Cholelithiasis Urinary frequency Severe obesity (BMI 35.0-39.9) with comorbidity Chronic back pain Osteoarthritis of left knee Hypothyroidism (acquired) Depression History of herpes labialis History of endometrial cancer IFG (impaired fasting glucose) Elevated alkaline phosphatase level Common bile duct dilation Pure hypercholesterolemia Essential hypertension Surgical History (Updated 08/21/23 @ 13:05 by EFRAÍN Granado) History of tonsillectomy History of knee replacement History of cataract surgery Social History Housing: House Patient Tobacco Use Status: Former Tobacco user (40 years ago) Tobacco use type: Cigarette e-Cigarette/Vaping Use: Never Used service: No Current occupational status: retired Current occupational exposures/hazards: No Cognitive needs: No Hearing needs: No Vision needs: Yes Questionnaire PHQ-9 Over the last 2 weeks, how often have you been bothered by any of the following problems? 1. Little interest or pleasure in doing things: not at all 2. Feeling down, depressed, or hopeless: not at all 3. Trouble falling or staying asleep, or sleeping too much: not at all 4. Feeling tired or having little energy: not at all 5. Poor appetite or overeating: not at all 6. Feeling bad about yourself - or that you are a failure or have let yourself or your family down: not at all 7. Trouble concentrating on things, such as reading the newspaper or watching television: not at all 8. Moving or speaking so slowly that other people could have noticed. Or the opposite - being so fidgety or restless that you have been moving around a lot more than usual: not at all 9. Thoughts that you would be better off or of hurting yourself in some way: not at all Total score: 0 61589 - PHQ-9 Billing: Yes Source: Developed by Drs. Ike Faustin, Katelyn Barrera, Bright Jeffery and colleagues, with an educational heather from [employer]. Thrive Questionnaire Date Thrive assessed: 04/15/24 I am a: Patient What is your living situation today?: I have a steady place to live Within the past 12 months, did the food you bought not last and you didn't have the money to get more?: Never true Within the past 12 months, did you worry whether your food would run out before you got money to buy more?: Never true Do you have trouble paying for medicines?: No Do you have trouble getting transportation to medical appointments?: No Do you have trouble paying your heating and electricity bill?: No Do you have trouble taking care of your child, family member or friend?: No Do you have trouble with day-to-day activities such as bathing, preparing meals, shopping, managing finances, etc.?: No Are you currently unemployed and looking for a job?: No Are you interested in more education?: No Please select the resources that you would like help with: None Currently or been in a relationship where the following occur: No concerns reported THRIVE Score: 0 AUDIT C Alcohol Use Questionnaire (AUDIT-C) 1. How often do you have a drink containing alcohol?: Monthly or less 2. How many drinks containing alcohol do you have on a typical day when you are drinking?: 1 or 2 3. How often do you have six or more drinks on one occasion?: Never Total Score: 1 CORAL-7 AMB Questionnaire CORAL-7 Date CORAL - 7 assessed: 04/15/24 Feeling nervous, anxious, or on edge: 0 = Not at all Not being able to stop or control worryin = Not at all Worrying too much about different things: 0 = Not at all Trouble relaxin = Not at all Being so restless that it is hard to sit still: 0 = Not at all Becoming easily annoyed or irritable: 0 = Not at all Feeling afraid as if something awful might happen: 0 = Not at all Total CORAL-7 score (0-4 normal; 5-9 mild; 10-14 moderate; 15-21 severe): 0 Source: Developed by Drs. Ike Faustin, Katelyn Barrera, Bright Jeffery and colleagues, with an educational heather from [employer]. CORAL-7 Assessment Billing CORAL-7 Assessment Tool: CORAL-7 Assessment 69765 Physical exam (Primary Care) Vital Signs: Last Vital Signs Temp 96.9 F 04/15/24 15:19 Pulse 75 04/15/24 15:19 Resp 12 04/15/24 15:19 BP 124/66 04/15/24 15:19 Pulse Ox 97 04/15/24 15:19 Oxygen Delivery Method Room Air 04/15/24 15:19 BMI result Body Mass Index 38.4 Tobacco/Smoking Status: Tobacco use Status Tobacco use date assessed 04/15/24 04/15/24 15:22 Patient Tobacco Use Status Former Tobacco user (40 04/15/24 15:22 years ago) Tobacco use type Cigarette 04/15/24 15:22 e-Cigarette/Vaping Use Never Used 04/15/24 15:22 PHQ-9: PHQ-9 Score PHQ-9: Total score 0 04/15/24 15:35 Thrive Assessment: Date of Thrive Assessment Date Thrive assessed 04/15/24 04/15/24 15:22 Currently or been in a relationship where the following occur: No concerns reported Coding Level of Care Code Est Pt Level 4 (29866) Complex EM visit Add On G2211 Diagnoses Hypothyroidism (acquired) E03.9 Chronic bilateral low back pain without sciatica M54.50; G89.29 Back pain location: low back pain Back pain laterality: bilateral Sciatica presence: without sciatica IFG (impaired fasting glucose) R73.01 History of endometrial cancer Z85.42 Pure hypercholesterolemia E78.00 Essential hypertension I10 Additional Codes CORAL-7 Assessment Billing - CORAL-7 Assessment Tool: CORAL-7 Assessment 30332 ([id number]) PHQ-9 - 81664 - PHQ-9 Billing: Yes ([id number]) Assessment & Plan Assessment & Plan (1) Hypothyroidism (acquired): Code(s): E03.9 - Hypothyroidism, unspecified Category: Medical (2) Chronic back pain: Code(s): M54.9 - Dorsalgia, unspecified; G89.29 - Other chronic pain Category: Medical Qualifiers: Back pain location: low back pain Back pain laterality: bilateral Sciatica presence: without sciatica Qualified Code(s): M54.50 - Low back pain, unspecified; G89.29 - Other chronic pain (3) IFG (impaired fasting glucose): Code(s): R73.01 - Impaired fasting glucose Category: Medical (4) History of endometrial cancer: Code(s): Z85.42 - Personal history of malignant neoplasm of other parts of uterus Category: Medical (5) Pure hypercholesterolemia: Code(s): E78.00 - Pure hypercholesterolemia, unspecified Category: Medical (6) Essential hypertension: Code(s): I10 - Essential (primary) hypertension Category: Medical Plan Chronic back pain Stable at this time. She discontinued Cymbalta due to fatigue. She does not want to try new medications. She will use Zanaflex as needed for flares. Continue prescription for Percocet as needed for severe pain. Patient is aware it is habit forming and addictive and not to drive or operate heavy machinery or drink alcohol with this medicine. Hypothyroidism Euthyroid. Continue levothyroxine. Impaired fasting glucose Last hemoglobin A1c normal. Recommended low carb, low sugar diet. Hyperlipidemia Continue simvastatin 40 mg daily. Hypertension Controlled. Continue low-sodium diet and avoidance of caffeine. Continue losartan 100 mg daily. Elevated alkaline phosphatase, common bile duct dilatation Followed by Gastroenterology. Ultrasound requested from [facility]. Her alk-phos trended down which is reassuring as well as the fact that she has no symptoms at this time that are concerning. Follow up in 3 months. Orders: Orders Hemoglobin A1c Today E11.9 - Type 2 diabetes mellitus without complications, R73.01 - Impaired fasting glucose, R74.8 - Abnormal levels of other serum enzymes Comprehensive Met. Panel Today R73.01 - Impaired fasting glucose, R74.8 - Abnormal levels of other serum enzymes TSH reflex Free T4 Today E03.9 - Hypothyroidism, unspecified Lipid Panel Today E78.5 - Hyperlipidemia, unspecified, R73.01 - Impaired fasting glucose, R74.8 - Abnormal levels of other serum enzymes
[2024-04-15 15:19] VITALS: BP 124/66; PULSE 75; RESP 12; TEMP 36.1; O2SAT 97; BMI 38.4
--- OUTSIDE RECORDS SUMMARY | 2024-04-15 16:16 | XMS_ITS | Patient Health Record ---
Author Organization [facility] Address [address] [place] [address] Care Team Providers Care Offset Press Operator Helper Name Role Phone VICTOR HUGO (RETIRED) GREGG STAHL Primary Care Provid er Unavailable Belinda Mcgee Unavailable [phone] Allergies Allergen (clinical drug ingredient) Drug/Non Drug Allergy documented on EMR Reaction Allergy Type Onset Date Status Latex Latex Burning Skin Allergy Active Reason For Referral No Information Medications Medication SIG (Take, Route, Frequency, Duration) Notes Start Date End Date Status Vicodin PRN for back pain Ac tive miSOPROStol 200 MCG 2 Orally night before procedure for 1 days 01/08/2022 Active Levothyroxine Sodium 75 MCG Oral for 90 Active Magnesium Gluconate 250 MG 1 tablet Orally Once a day Active Multi-Vitamin - 1 tablet Orally Once a day for 30 day(s) Active Simvastatin 40 MG Oral for 90 Active Losartan Potassium 100 MG Oral for 90 Active Amoxicillin 500 MG Oral for 5 Before Procedures Active valACYclovir HCl 1 GM Oral for 10 Active Estradiol Vaginal Cream 0.01% 1 Gram Externally daily x 7d, then twice weekly for a month, twice a year for 90 days 03/07/2021 Active Probiotic - as directed Orally Not-Taking Voltaren 1 % as directed Externally Not-Taking Social History Tobacco Use: Social History Observation Description Date Details (start date - stop date) Former Smoker NA - NA Tobacco Use/Smoking Question Answer Notes Are you a former smoker How long has it been since you last smoked? > 10 years Alcohol Screen (Audit-C) Question Answer Notes Did you have a drink contain ing alcohol in the past year? Yes How often did you have a dri nk containing alcohol in the past year? 2 to 4 times a month (2 points) How many drinks did you have on a typical day when you were drinking in the past year? 1 or 2 drinks (0 point) Points 2 Interpretation Negative Sexual History Question Answer Notes Had sex in the past 12 months (vaginal, oral, or anal)? Yes with Men only Prevention strategies discussed: Other Problems Problem Type SNOMED Code ICD Code Onset Dates Problem Status W/U Status Risk Notes Problem Postmenopausal atrophic vaginitis (54564035) Postmenopausal atrophic vaginitis (N95.2) Active confirmed Problem Postmenopausal bleeding (07426892) Postmenopausal bleeding (N95.0) Active confirmed Problem Essential hypertension (56553006) Essential (primary) hypertension (I10) Active confirmed Problem Hypothyroidism (32923926) Hypothyroidism, unspecified (E03.9) Active confirmed Problem Malignant neoplasm of corpus uteri, excluding isthmus (749912525) Malignant neoplasm of endometrium (C54.1) Active confirmed Problem Hyperlipidemia (53985186) Other hyperlipidemia (E78.4) Active confirmed Problem Recurrent depression (118765642) Other recurrent depressive disorders (F33.8) Active confirmed Problem Osteoarthritis (862827422) Unspecified osteoarthritis, unspecified site (M19.90) Active confirmed Problem Atrophy of vulva (190701606) 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) Active confirmed Problem Personal history of primary malignant neoplasm of female genital organ (320684898) Personal history of malignant neoplasm of other parts of uterus (Z85.42) Active confirmed Problem Menopause (026732129) Menopausal and female climacteric states (N95.1) Active confirmed Problem Body mass index 35.00 to 39.99 (105955105227520) Body mass index [BMI] 37.0-37.9, adult (Z68.37) Active confirmed Problem Vitamin B-complex deficiency (905736194) Other B-complex deficiencies (266.2) Active confirmed Major Problem Menopausal symptom (70699652) Symptomatic menopausal or female climacteric states (627.2) Active confirmed Major Problem Abdominal (68928289) Abdominal (633.0) Active confirmed Diag Plan Of Treatment No Information Insurance Providers Payer Name Payer Address Payer Phone Subscriber Number Group Number Insured Name Patient Relationship to Insured Coverage Start Date Coverage End Date MEDICARE [address] [place] [id number] [phone] [id number] THOMAS STACY Self - patient is the insured [employer] [address] [place] [address] [phone] [id number] THOMAS STACY Self - patient is the insured Medical (General) History Medical History History ICD Code Hypothyroidism, unspecified E03.9 Deficiency of other specified B group vi tamins E53.8 Other hyperlipidemia E78.4 Essential (primary) hypertension I10 Menopausal and female climacteric states N95.1 Unspecified osteoarthritis, unspecified site M19.90 Herpesviral infection, unspecified B00.9 Other recurrent depressive disorders F33 .8 Nutritional deficiency, unspecified E63. 9 Pain in thoracic spine M54.6 Surgical History Surgery Date(Month/Year) Cataracts Surgery Knee Replacement Surgical Excision of Tubal Tonsillectomy Hospitalization History Reason Date(Month/Year) See Surgical Hx
--- OUTSIDE RECORDS SUMMARY | 2024-04-15 16:16 | XMS_ITS | Clinical Summary ---
Author Organization [facility] Address [address] [place] [address] Care Team Providers Care Anthropology Lecturer Name Role Phone Carmen Williamson MD Primary Care Provider [phone] Surgical History Surgery Date Site/Laterality Comments OOPHORECTOMY PROCEDURE:OOPHORECTOMY JOINT REPLACEMENT PROCEDURE:JOINT REPLACEMENT Medical History Medical History Date Comments Hypertension DX:Hypertension Hypothyroidism DX:Hypothyroidis m Family History Medical History Relation Name Comments Diabetes Mother Hypertension Mother Relation Name Status Comments Mother Social History Tobacco Use Types Packs/Day Years Used Date Smoking Tobacco: Never Assessed Comments Unknown Sex and Gender Information Value Date Recorded Sex Assigned at Not on file Legal Sex Female 7:04 PM EST Gender Identity Not on file Sexual Orientation Not on file Obstetrics History Plan of Treatment Health Maintenance Due Date Last Done Comments DTaP,Tdap,and Td Vaccines (1 - Tdap) 1960 Pneumococcal Vaccine: 50+ Ye ars (1 of 1 - PCV) 12/07/1991 Zoster Vaccines (1 of 2) 12/07/1991 RSV Immunization Patients 60 + Years Old (1 - 1-dose 75+ series) 2016 Depression Screening 01/26/2022 Falls Risk Assessment 01/26/2022 Osteoporosis Screening (Bone Density Screening) 01/26/2022 Social Influencers of Health Screening 01/26/2022 COVID-19 Vaccine ( - 2023-2 5 season) 2023 Influenza Vaccine (#1) 2023 HIB Vaccines Aged Out No longer eligi ble based on patient's age to complete this topic HPV Vaccines Aged Out No longer eligi ble based on patient's age to complete this topic Hepatitis A Vaccines Aged Out No long er eligible based on patient's age to complete this topic Hepatitis B Vaccines Aged Out No long er eligible based on patient's age to complete this topic IPV Vaccines Aged Out No longer eligi ble based on patient's age to complete this topic MMR Vaccines Aged Out No longer eligi ble based on patient's age to complete this topic Meningococcal ACWY Vaccine Aged Out N o longer eligible based on patient's age to complete this topic Meningococcal B Vacine Aged Out No lo nger eligible based on patient's age to complete this topic RSV Immunization Patients Un hema 20 months Aged Out No longer eligible b ased on patient's age to complete this topic Varicella Vaccines Aged Out No longer eligible based on patient's age to complete this topic Advance Directives Documents on File Type Date Recorded Patient Telephone Clerk Expl anation Health Care Decision (hx) 11/11/2017 AD MARK DIRECTIVE Care Teams Anthropology Lecturer Relationship Specialty Start Date End Date Carmen Williamson MD [address] [place] [address] PCP - General Rn Office 07/01/17
--- OUTSIDE RECORDS SUMMARY | 2024-04-15 16:16 | XMS_ITS | Clinical Summary ---
Author Organization [facility] Address [address] [place], [place] [id number] Care Team Providers Care Electric Engine Mechanic Name Role Phone Carmen Williamson MD Primary Care Provider [phone] Allergies No known active allergies Medications Medication Sig Dispensed Refills Start Date End Date Status gabapentin (NEURONTIN) 300 MG capsule Take 300 mg by mouth every night at bedtime. 1 04/02/2017 Active losartan (COZAAR) 100 MG tablet Take 100 mg by mouth daily. 1 05/08/2017 Active simvastatin (ZOCOR) tablet 40 mg Take 40 mg by mouth every evening. 0 05/27/2017 Active HYDROcodone-acetam inophen (NORCO) 5-325 MG per tablet Take 1 tablet by mouth every 6 (six) hours as needed. for pain 0 07/11/2017 Active warfarin (COUMADIN) 1 MG tablet Take 5 tabs daily or as directed by physician 70 tablet 0 11/25/2017 Active levothyroxine (SYNTHROID, LEVOXYL) tablet 50 mcg Take 50 mcg by mouth daily. 2 08/19/2018 Active amoxicillin (AMOXIL) 500 MG capsule TAKE 4 CAPSULES BY MOUTH 1 HOUR PRIOR TO ANY DENTAL APPT, SURGICAL PROCEDURE, OR COLONOSCOPY 20 capsule 0 11/01/2021 Active Active Problems Problem Noted Date Diagnosed Date Knee stiffness, left 04/07/2018 Postop check 11/25/2017 Family History Medical History Relation Name Comments Diabetes Mother Hypertension Mother Relation Name Status Comments Mother Social History Tobacco Use Types Packs/Day Years Used Date Smoking Tobacco: Never Assessed Sex and Gender Information Value Date Recorded Sex Assigned at Not on file Gender Identity Not on file Sexual Orientation Not on file Last Filed Vital Signs Vital Sign Reading Time Taken Comments Blood Pressure - - Pulse - - Temperature - - Respiratory Rate - - Oxygen Saturation - - Inhaled Oxygen Concentration - - Weight 90.7 kg (200 lb) 10/08/2018 10:29 AM EDT Height 157.5 cm (5' 2 ) 10/08/2018 10:29 AM EDT Body Mass Index 36.58 10/08/2018 10:29 AM EDT Plan of Treatment Health Maintenance Due Date Last Done Comments COVID-19 Vaccine (#1) 06/06/1941 Depression Screening 1953 BMI Counseling 12/07/1959 Preventative Health Evaluation 12/07/1959 DTap / Tdap / Td (1 - Tdap) 1960 Shingrix-Zoster Vaccine (1 of 2) 12/07/1991 Fall Risk Assessment 2006 Osteoporosis Screening (DEXA Scan) 2006 Pneumococcal Vaccine (1 of 1 - PCV) 2006 RSV Adult > 60+ Yrs or Pregn ant (1 - 1-dose 75+ series) 2016 Influenza Vaccine (#1) 2023 Hepatitis B Vaccines Aged Out No long er eligible based on patient's age to complete this topic RSV Ped < 20 months Aged Out No longe r eligible based on patient's age to complete this topic Care Teams Electric Engine Mechanic Relationship Specialty Start Date End Date Carmen Williamson MD [address] [place] [address] [place] [address] PCP - General Fiction And Nonfiction Writer Prose 07/01/17
== END 2024-04-15 15:48 | disposition home or self-care (01) ==
PROVIDERS: PCP Physician Assistant Medical; Visit Provider Physician Assistant Medical
DX: E03.9 Hypothyroidism, unspecified (principal); M54.50 Low back pain, unspecified; G89.29 Other chronic pain; R73.01 Impaired fasting glucose; Z85.42 Personal history of malignant neoplasm of other parts of uterus; E78.00 Pure hypercholesterolemia, unspecified; I10 Essential (primary) hypertension

== ENCOUNTER → 2024-04-15 15:14 | Outpatient (BNVA) | payer MEDICARE, SELFPAY | PROVIDERS: PCP Physician Assistant Medical; Visit Provider Physician Assistant Medical | DX: E03.9 Hypothyroidism, unspecified (principal); G89.29 Other chronic pain; M54.50 Low back pain, unspecified; R73.01 Impaired fasting glucose; E78.00 Pure hypercholesterolemia, unspecified; I10 Essential (primary) hypertension; Z85.42 Personal history of malignant neoplasm of other parts of uterus; Z79.899 Other long term (current) drug therapy | CPT/HCPCS: 96127; 99212 ==

== ENCOUNTER 2024-07-09 09:49 | Outpatient (REF) | payer MEDICARE, SELFPAY ==
--- OUTSIDE RECORDS SUMMARY | 2024-07-09 10:07 | XMS_ITS | Clinical Summary ---
Author Organization [facility] Address [address] [place], [place] [id number] Care Team Providers Care Oyster Picker Name Role Phone Carmen Williamson MD Primary Care Provider [phone] Allergies No known active allergies Medications Medication [...] age to complete this topic Care Teams Oyster Picker Relationship Specialty Start Date End Date Carmen Williamson MD [address] [place] [address] [place] [address] PCP - General Quality Compliance Manager 07/01/17
--- OUTSIDE RECORDS SUMMARY | 2024-07-09 10:07 | XMS_ITS | Clinical Summary ---
Author Organization [facility] Address [address] [place] [address] Care Team Providers Care Cake Decorator Name Role Phone Carmen Williamson MD Primary Care Provider [phone] Surgical History Surgery Date Site/Laterality Comments OOPHORECTOMY [...] Vaccines (1 of 2) 12/07/1991 RSV Immunization Adult Patie nts (1 - 1-dose 75+ series) 2016 Depression Screening 01/26/2022 Falls Risk Assessment 01/26/2022 Osteoporosis Screening (Bone Density Screening) 01/26/2022 Social Influencers of Health Screening 01/26/2022 COVID-19 Vaccine ( - 2023-2 5 season) 2023 Influenza Vaccine (Season Ended) 2024 HIB Vaccines Aged Out No longer eligi [...] age to complete this topic Meningococcal B Vaccine Aged Out No l onger eligible based on patient's age to complete this topic RSV Immunization Patients Un hema 20 months Aged Out No longer eligible b ased on patient's age to complete this topic Varicella Vaccines Aged Out No longer eligible based on patient's age to complete this topic Advance Directives Documents on File Type Date 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
--- OUTSIDE RECORDS SUMMARY | 2024-07-09 10:08 | XMS_ITS | Patient Health Record ---
Author Organization [facility] Address [address] [place] [address] Care Team Providers Care Flight Radio Officer Name Role Phone VICTOR HUGO (RETIRED) GREGG STAHL Primary Care Provid er Unavailable Belinda Mcgee Unavailable [phone] Allergies Allergen (clinical drug ingredient) Drug/Non Drug [...] Status Risk Notes Problem Postmenopausal atrophic vaginitis (60979839) Postmenopausal atrophic vaginitis (N95.2) Active confirmed Problem Postmenopausal bleeding (15694204) Postmenopausal bleeding (N95.0) Active confirmed Problem Essential hypertension (51763445) Essential (primary) hypertension (I10) Active confirmed Problem Hypothyroidism (13677448) Hypothyroidism, unspecified (E03.9) Active confirmed Problem Malignant neoplasm of corpus uteri, excluding isthmus (292076704) Malignant neoplasm of endometrium (C54.1) Active confirmed Problem Hyperlipidemia (26228453) Other hyperlipidemia (E78.4) Active confirmed Problem Recurrent depression (617668121) Other recurrent depressive disorders (F33.8) Active confirmed Problem Osteoarthritis (313178674) Unspecified osteoarthritis, unspecified site (M19.90) Active confirmed Problem Atrophy of vulva (688233407) 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) Active confirmed Problem Personal history of primary malignant neoplasm of female genital organ (112402814) Personal history of malignant neoplasm of other parts of uterus (Z85.42) Active confirmed Problem Menopause (599256861) Menopausal and female climacteric states (N95.1) Active confirmed Problem Body mass index 35.00 to 39.99 (896455721954605) Body mass index [BMI] 37.0-37.9, adult (Z68.37) Active confirmed Problem Vitamin B-complex deficiency (754630315) Other B-complex deficiencies (266.2) Active confirmed Major Problem Menopausal symptom (57079093) Symptomatic menopausal or female climacteric states (627.2) Active confirmed Major Problem Abdominal (62820509) Abdominal (633.0) Active confirmed Diag Plan Of Treatment No Information Insurance Providers Payer Name Payer Address Payer Phone Subscriber Number Group Number Insured Name Patient Relationship to Insured Coverage Start Date Coverage End Date MEDICARE [address] [place] [id number] THOMAS STACY Self - patient is the insured [employer] [address] [place] [address] [id number] THOMAS STACY Self - patient is [...]
[2024-07-09 12:07] LABS: Estimated Average Glucose 105 mg/dL; Hemoglobin A1C 119.7997 umol/L; Hemoglobin A1c % 5.3 % (<6.0); Total Hemoglobin (HGBA1C) 3446.0397 umol/L
[2024-07-09 12:14] LABS: Alanine Aminotransferase 35 U/L (0-31); Albumin Level 3.9 g/dL (3.5-5.0); Alkaline Phosphatase 207 U/L (39-117); Anion Gap 10 (12-20); Aspartate Amino Transferase 33 U/L (5-31); Bilirubin Total 0.4 mg/dL (0.0-1.0); Blood Urea Nitrogen 27 mg/dL (9-16); Calcium 9.4 mg/dL (8.4-10.2); Carbon Dioxide 26 mmol/L (22-29); Chloride 110 mmol/L (96-108); Cholesterol 201 mg/dL (<200); Estimated Glomerular Filt Rate > 60; Glucose Random 95 mg/dL (60-115); HDL Cholesterol 50 mg/dL (>40); LDL Cholesterol Calculated 115 mg/dL (<100); Potassium 4.4 mmol/L (3.3-5.1); Sodium 142 mmol/L (135-145); Total Protein 6.9 g/dL (6.5-8.0); Triglycerides 182 mg/dL (<150)
== END 2024-07-09 09:50 | disposition home or self-care (01) ==
LOC: HO.WFDLDS 09:49
PROVIDERS: Physician Assistant Medical; Visit Provider Nurse Practitioner Family
DX: E11.65 Type 2 diabetes mellitus with hyperglycemia (principal); R74.8 Abnormal levels of other serum enzymes; E03.9 Hypothyroidism, unspecified; E78.5 Hyperlipidemia, unspecified
CPT/HCPCS: 36415; 80053; 80061; 83036; 84443

== ENCOUNTER 2024-07-21 14:30 | Outpatient (REF) | payer MEDICARE, SELFPAY ==
--- OUTSIDE RECORDS SUMMARY | 2024-07-21 15:24 | XMS_ITS ---
Author Name [facility] Organization Unknown Encounters Encounter Type Encounter Reason Primary Diagnosis Location Date Ambulatory [facility] [place] 11/25/2022 Ambulatory [facility] [place] 11/15/2022
[2024-07-21 17:36] LABS: Appearance Urine Clear; Color Urine Dark Yellow; Glucose Urine UA Negative (Negative); Leukocyte Esterase Urine Small (1+) (Negative); Nitrite Urine Negative (Negative); PH 5.5 (5.0-9.0); Specific Gravity - Urine 1.025 (1.005-1.025); UMIC TRIGGER UA YES; Urine Blood Negative (Negative); Urine Ketones Negative (Negative); Urine Protein Negative (Neg-Trace)
[2024-07-21 17:57] LABS: Bacteria Urine Trace (None Seen); Calcium Oxalate Crystals Urine Present; Hyaline Casts Urine 0-2 /LPF (0-2); RBC Urine 0-2 /HPF (0-2); WBC Clumps Urine Present
== END 2024-07-21 14:31 | disposition home or self-care (01) ==
LOC: HO.WFDLDS 14:30
PROVIDERS: Visit Provider Physician Assistant Medical
DX: R35.0 Frequency of micturition (principal); R39.9 Unspecified symptoms and signs involving the genitourinary system
CPT/HCPCS: 81001; 87086; 87088; 87186

== ENCOUNTER 2024-07-22 11:32 | Outpatient (AMB) | payer MEDICARE, SELFPAY ==
--- NOTE | 2024-07-22 11:38 | A.OFFPC_ITS ---
Vital Signs 07/22/24 11:45 Height 5 ft 1 in Weight 198 lb 4 oz BMI 37.5 BP 138/80 Blood Pressure Location Rt brachial Position Sitting Pulse 71 Pulse Source Pulse Oximeter Temp 98.2 F Temp Source Temporal Artery Scan Pulse Oximetry (%) 98 Oxygen Delivery Method Room Air Intake Visit Reasons: follow up/med review Intake Note: Anjana presents in the office today for a medication review. Allergies latex Allergy (Verified 07/22/24 11:43) Burning Tobacco use date assessed: 07/22/24 Fall risk assessment: 1 Fall in past year Last assessed Fall Risk: 07/22/24 Dental Screening Dental Screen Date: 07/22/24 Did you have a dental visit in the last 12 months?: Yes Did you have a dental problem in the last 6 months where you did not have access to dental care?: No Was dental information given to patient?: Patient has dentist HPI HPI Comments History of Present Illness Details This is an 83-year-old female with a past medical history of hypertension, hyperlipidemia, IFG, biliary ductal dilatation, elevated alkaline phosphatase, depression and endometrial cancer who presents for follow up. She had an exacerbation of back pain after falling recently. It lasted 3 weeks. Now her pain is back to baseline. She is on Percocet. She also receives Zanaflex to take as needed for flares when she gets muscle spasms. She endorses a history of back pain since 1996. In the past she sought treatment at [facility]. She saw Dr. Bernal. She did physical therapy. 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 she has a history of IBS, biliary ductal dilatation and elevated alkaline phosphatase.She had an appointment with [facility] in November 2023 to follow up on elevated alkaline phosphatase level and biliary ductal dilatation. Patient says she did have the ultrasound completed, and they told her she has gallstones. She is not planning to pursue elective surgery at this time. She denies abdominal pain, nausea, vomiting, diarrhea, unexplained weight loss. She had lab work done 07/09/2024 which showed alkaline phosphatase increased from 138-207, and her AST and ALT are mildly elevated at 33 and 35. Hypertension is treated with losartan 100 mg daily. Hyperlipidemia is treated with simvastatin 40 mg at bedtime. Hypothyroidism is treated with 75 mcg daily of levothyroxine. She had a CTA in 2022 which showed a 1.3 mm outpouching of contrast in the supraclinoid right ICA that could represent a small communicating artery or tiny aneurysm. There was no hemodynamically significant stenosis. She saw Neurosurgery to discuss the possible aneurysm. It was decided to pursue no further follow-up or intervention due to the low risk of rupture. She had a few days of urinary frequency and urgency, and she had a urinalysis done yesterday which shows some leuks and small amount of bacteria. Culture is pending. The symptoms resolved over the last 1-2 days. No fevers or chills. She defers mammogram, Cologuard and colonoscopy due to her age. ROS: Constitutional: No unexplained weight loss, fever, chills, fatigue or night sweats. Eyes: No vision changes, blurry vision, double vision Respiratory: No shortness of breath, cough or sputum production. Cardiovascular: No chest pain, chest pressure or chest discomfort. No palpitations or pedal edema. Gastrointestinal: No anorexia, nausea, vomiting or diarrhea. No abdominal pain or blood in stool. Neurologic: No headache, dizziness, syncope Hematologic/Lymphatics: No bleeding or bruising. No painful lymph nodes. Endocrine: No cold or heat intolerance. No polyuria or polydipsia. Psychiatric: No depression or anxiety. No SI/HI. Physical exam: Constitutional: Alert, in no distress. Head: Normocephalic. Eyes: Pupils are equal, round and reactive to light. Extraocular muscles intact. Neck: Supple, Full range of motion. No lymphadenopathy. Respiratory: Clear to auscultation. Cardiovascular: S1 S2 regular. No murmurs. Gastrointestinal: Abdomen soft, non-tender, non-distended. Normal bowel sounds. No palpable masses. Neurologic: No focal neurological deficits Extremities: Warm and well perfused. No clubbing, cyanosis or edema. Psychiatric: Normal mood and affect [facility] Medical History (Updated 07/22/24 @ 12:18 by EFRAÍN Granado) Elevated liver enzymes Cholelithiasis Urinary frequency Severe obesity (BMI 35.0-39.9) with comorbidity Chronic back pain Osteoarthritis of left knee Hypothyroidism (acquired) Depression History of herpes labialis History of endometrial cancer IFG (impaired fasting glucose) Elevated alkaline phosphatase level Common bile duct dilation Pure hypercholesterolemia Essential hypertension Surgical History (Updated 08/21/23 @ 13:05 by EFRAÍN Granado) History of tonsillectomy History of knee replacement History of cataract surgery Social History (Updated 07/22/24 @ 11:39 by Mihaela Rhodes MA) Housing: House Alcohol intake: never Patient Tobacco Use Status: Former Tobacco user (40 years ago) Tobacco use type: Cigarette e-Cigarette/Vaping Use: Never Used Second Hand Smoke Exposure: No service: No Current occupational status: retired Current occupational exposures/hazards: No Cognitive needs: No Hearing needs: No Vision needs: Yes Questionnaire PHQ-9 Over the last 2 weeks, how often have you been bothered by any of the following problems? 1. Little interest or pleasure in doing things: not at all 2. Feeling down, depressed, or hopeless: not at all 3. Trouble falling or staying asleep, or sleeping too much: not at all 4. Feeling tired or having little energy: not at all 5. Poor appetite or overeating: not at all 6. Feeling bad about yourself - or that you are a failure or have let yourself or your family down: not at all 7. Trouble concentrating on things, such as reading the newspaper or watching television: not at all 8. Moving or speaking so slowly that other people could have noticed. Or the opposite - being so fidgety or restless that you have been moving around a lot more than usual: not at all 9. Thoughts that you would be better off or of hurting yourself in some way: not at all Total score: 0 Depression Screening Interpretation: Negative Depression Screening Done: Yes 32569 - PHQ-9 Billing: Yes Source: Developed by Drs. Ike Faustin, Katelyn Barrera, Bright Jeffery and colleagues, with an educational heather from [employer]. Thrive Questionnaire Date Thrive assessed: 07/22/24 I am a: Patient What is your living situation today?: I have a steady place to live Within the past 12 months, did the food you bought not last and you didn't have the money to get more?: Never true Within the past 12 months, did you worry whether your food would run out before you got money to buy more?: Never true Do you have trouble paying for medicines?: No Do you have trouble getting transportation to medical appointments?: No Do you have trouble paying your heating and electricity bill?: No Do you have trouble taking care of your child, family member or friend?: No Do you have trouble with day-to-day activities such as bathing, preparing meals, shopping, managing finances, etc.?: No Are you currently unemployed and looking for a job?: No Are you interested in more education?: No Please select the resources that you would like help with: None Currently or been in a relationship where the following occur: No concerns reported THRIVE Score: 0 AUDIT C Alcohol Use Questionnaire (AUDIT-C) 1. How often do you have a drink containing alcohol?: Never Total Score: 0 CORAL-7 AMB Questionnaire CORAL-7 Date CORAL - 7 assessed: 07/22/24 Feeling nervous, anxious, or on edge: 0 = Not at all Not being able to stop or control worryin = Not at all Worrying too much about different things: 0 = Not at all Trouble relaxin = Not at all Being so restless that it is hard to sit still: 0 = Not at all Becoming easily annoyed or irritable: 0 = Not at all Feeling afraid as if something awful might happen: 0 = Not at all Total CORAL-7 score (0-4 normal; 5-9 mild; 10-14 moderate; 15-21 severe): 0 Source: Developed by Drs. Ike Faustin, Katelyn Barrera, Bright Jeffery and colleagues, with an educational heather from [employer]. CORAL-7 Assessment Billing CORAL-7 Assessment Tool: CORAL-7 Assessment 07286 Physical exam (Primary Care) Vital Signs: Last Vital Signs Temp 98.2 F 07/22/24 11:45 Pulse 71 07/22/24 11:45 BP 138/80 07/22/24 11:45 Pulse Ox 98 07/22/24 11:45 Oxygen Delivery Method Room Air 07/22/24 11:45 BMI result Body Mass Index 37.5 Tobacco/Smoking Status: Tobacco use Status Tobacco use date assessed 07/22/24 07/22/24 11:41 Patient Tobacco Use Status Former Tobacco user (40 07/22/24 11:39 years ago) Tobacco use type Cigarette 07/22/24 11:39 e-Cigarette/Vaping Use Never Used 07/22/24 11:39 PHQ-9: PHQ-9 Score PHQ-9: Total score 0 07/22/24 12:09 Depression Screening Interpretation: Negative Thrive Assessment: Date of Thrive Assessment Date Thrive assessed 07/22/24 07/22/24 11:41 Currently or been in a relationship where the following occur: No concerns reported Coding Level of Care Code Est Pt Level 4 (62265) Complex EM visit Add On G2211 Diagnoses Hypothyroidism (acquired) E03.9 Chronic bilateral low back pain without sciatica M54.50; G89.29 Back pain location: low back pain Back pain laterality: bilateral Sciatica presence: without sciatica History of endometrial cancer Z85.42 Pure hypercholesterolemia E78.00 Essential hypertension I10 Elevated liver enzymes R74.8 Urinary frequency R35.0 Elevated alkaline phosphatase level R74.8 Additional Codes CORAL-7 Assessment Billing - CORAL-7 Assessment Tool: CORAL-7 Assessment 82547 ([id number]) PHQ-9 - 27033 - PHQ-9 Billing: Yes ([id number]) Assessment & Plan Assessment & Plan (1) Hypothyroidism (acquired): Code(s): E03.9 - Hypothyroidism, unspecified Category: Medical (2) Chronic back pain: Code(s): M54.9 - Dorsalgia, unspecified; G89.29 - Other chronic pain Category: Medical Qualifiers: Back pain location: low back pain Back pain laterality: bilateral Sciatica presence: without sciatica Qualified Code(s): M54.50 - Low back pain, unspecified; G89.29 - Other chronic pain (3) History of endometrial cancer: Code(s): Z85.42 - Personal history of malignant neoplasm of other parts of uterus Category: Medical (4) Pure hypercholesterolemia: Code(s): E78.00 - Pure hypercholesterolemia, unspecified Category: Medical (5) Essential hypertension: Code(s): I10 - Essential (primary) hypertension Category: Medical (6) Elevated liver enzymes: Code(s): R74.8 - Abnormal levels of other serum enzymes Category: Medical (7) Urinary frequency: Code(s): R35.0 - Frequency of micturition Category: Medical (8) Elevated alkaline phosphatase level: Code(s): R74.8 - Abnormal levels of other serum enzymes Category: Medical Plan Chronic back pain Stable at this time. She discontinued Cymbalta due to fatigue. She does not want to try new medications. She will use Zanaflex as needed for flares. Continue prescription for Percocet as needed for severe pain. Patient is aware it is habit forming and addictive and not to drive or operate heavy machinery or drink alcohol with this medicine. Patient declined imaging and referral to back specialists. Hypothyroidism Euthyroid. Continue levothyroxine. Impaired fasting glucose Last hemoglobin A1c normal. Recommended low carb, low sugar diet. Hyperlipidemia Continue simvastatin 40 mg daily. She has been eating more candy recently, and I encouraged her to follow the Mediterranean diet and work on weight loss. Hypertension Controlled. Continue low-sodium diet and avoidance of caffeine. Continue losartan 100 mg daily. Elevated alkaline phosphatase, common bile duct dilatation , elevated LFTs Followed by Gastroenterology. referred anew given changed to labs. At 1 point MRCP was discussed, and I explained this to the patient that since labs have changed I want her to see the cruller maker again to see if this is indicated. Recheck labs in 4 weeks. Check alkaline phosphatase isoenzymes, GGTP, hepatitis screening. Patient instructed to call if she develops any symptoms. Urinary frequency Awaiting results of urine culture. Patient has no symptoms today. Follow up in 5 weeks to review lab results. Orders: Orders Liver Panel Today R74.8 - Abnormal levels of other serum enzymes Alkaline Phosphatase Isoenzyme Today R74.8 - Abnormal levels of other serum enzymes Hepatitis A IgM Today R74.8 - Abnormal levels of other serum enzymes Gamma Glutamyl Transpeptidase Today R74.8 - Abnormal levels of other serum enzymes Hepatitis A,B,C Profile Today R74.8 - Abnormal levels of other serum enzymes Complete Blood Count Auto Diff Today R74.8 - Abnormal levels of other serum enzymes Referrals Gastroenterology Referral R74.8 - Abnormal levels of other serum enzymes
[2024-07-22 11:45] VITALS: BP 138/80; PULSE 71; TEMP 36.8; O2SAT 98; BMI 37.5
--- OUTSIDE RECORDS SUMMARY | 2024-07-22 11:53 | XMS_ITS | Clinical Summary ---
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
== END 2024-07-22 12:29 | disposition home or self-care (01) ==
LOC: HO.HMCFM 11:33
PROVIDERS: PCP Physician Assistant Medical; Visit Provider Physician Assistant Medical
DX: E03.9 Hypothyroidism, unspecified (principal); M54.50 Low back pain, unspecified; G89.29 Other chronic pain; Z85.42 Personal history of malignant neoplasm of other parts of uterus; E78.00 Pure hypercholesterolemia, unspecified; I10 Essential (primary) hypertension; R74.8 Abnormal levels of other serum enzymes; R35.0 Frequency of micturition

== ENCOUNTER → 2024-07-22 11:32 | Outpatient (BNVA) | payer MEDICARE, SELFPAY | PROVIDERS: PCP Physician Assistant Medical; Visit Provider Physician Assistant Medical | DX: E03.9 Hypothyroidism, unspecified (principal); M54.50 Low back pain, unspecified; G89.29 Other chronic pain; E78.00 Pure hypercholesterolemia, unspecified; I10 Essential (primary) hypertension; R74.8 Abnormal levels of other serum enzymes; R35.0 Frequency of micturition; Z85.42 Personal history of malignant neoplasm of other parts of uterus; Z79.899 Other long term (current) drug therapy | CPT/HCPCS: 96127; 99212 ==

== ENCOUNTER 2024-08-26 10:42 | Outpatient (REF) | payer MEDICARE, SELFPAY ==
--- OUTSIDE RECORDS SUMMARY | 2024-08-26 11:31 | XMS_ITS | Clinical Summary ---
Author Organization [facility] Address [address] [place], [place] [id number] Care Team Providers Care Business Systems Advisor Name Role Phone Carmen Williamson MD Primary Care Provider [phone] Allergies No known active allergies Medications Medication [...] - 1-dose 75+ series) 2016 Influenza Vaccine (Season Ended) 2024 Hepatitis B Vaccines Aged Out No long er eligible based on patient's age to complete this topic RSV Ped < 20 months Aged Out No longe r eligible based on patient's age to complete this topic Care Teams Business Systems Advisor Relationship Specialty Start Date End Date Carmen Williamson MD [address] [place] [address] [place] [address] PCP - General Water Resource Project Manager 07/01/17
--- OUTSIDE RECORDS SUMMARY | 2024-08-26 11:32 | XMS_ITS | Patient Health Record ---
Author Organization [facility] Address [address] [place] [address] Care Team Providers Care Hog Pusher Name Role Phone VICTOR HUGO (RETIRED) GREGG STAHL Primary Care Provid er Unavailable Belinda Mcgee Unavailable [phone] Allergies Allergen (clinical drug ingredient) Drug/Non Drug Allergy documented on EMR Reaction Allergy Type Onset Date Status Latex Latex Burning Skin Allergy Active Reason For Referral No Information Medications Medication SIG (Take, Route, Frequency, Duration) Notes Start Date End Date Status Vicodin PRN for back pain Ac tive miSOPROStol 200 MCG 2 Orally night before procedure; Duration: 1 days 01/08/2022 Active Levothyroxine Sodium 75 MCG Oral; Duration: 90 Active Magnesium Gluconate 250 MG 1 tablet Orally Once a day Active Multi-Vitamin - 1 tablet Orally Once a day; Duration: 30 day(s) Active Simvastatin 40 MG Oral; Duration: 90 Active Losartan Potassium 100 MG Oral; Duration: 90 Active Amoxicillin 500 MG Oral; Duration: 5 Before Procedures Active valACYclovir HCl 1 GM Oral; Duration: 10 Active Estradiol Vaginal Cream 0.01% 1 Gram Externally daily x 7d, then twice weekly for a month, twice a year; Duration: 90 days 03/07/2021 Active Probiotic - as [...] Status Risk Notes Problem Postmenopausal atrophic vaginitis (55828867) Postmenopausal atrophic vaginitis (N95.2) Active confirmed Problem Postmenopausal bleeding (11348982) Postmenopausal bleeding (N95.0) Active confirmed Problem Essential hypertension (60564839) Essential (primary) hypertension (I10) Active confirmed Problem Hypothyroidism (55165828) Hypothyroidism, unspecified (E03.9) Active confirmed Problem Malignant neoplasm of corpus uteri, excluding isthmus (902244985) Malignant neoplasm of endometrium (C54.1) Active confirmed Problem Hyperlipidemia (42919808) Other hyperlipidemia (E78.4) Active confirmed Problem Recurrent depression (740544167) Other recurrent depressive disorders (F33.8) Active confirmed Problem Osteoarthritis (731859530) Unspecified osteoarthritis, unspecified site (M19.90) Active confirmed Problem Atrophy of vulva (942479947) 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) Active confirmed Problem Personal history of primary malignant neoplasm of female genital organ (614823808) Personal history of malignant neoplasm of other parts of uterus (Z85.42) Active confirmed Problem Menopause (562113553) Menopausal and female climacteric states (N95.1) Active confirmed Problem Body mass index 35.00 to 39.99 (586909561150302) Body mass index [BMI] 37.0-37.9, adult (Z68.37) Active confirmed Problem Vitamin B-complex deficiency (265469884) Other B-complex deficiencies (266.2) Active confirmed Major Problem Menopausal symptom (04683269) Symptomatic menopausal or female climacteric states (627.2) Active confirmed Major Problem Abdominal (19059911) Abdominal (633.0) Active confirmed Diag Plan Of Treatment No Information Insurance Providers Payer Name Payer Address Payer Phone Subscriber Number Group Number Insured Name Patient Relationship to Insured Coverage Start Date Coverage End Date MEDICARE [address] [place], [place] [id number] [phone] [id number] THOMAS STACY Self - patient is the insured [employer] [address] [place] [address] [phone] [id number] THOMAS STACY Self - patient is [...]
--- OUTSIDE RECORDS SUMMARY | 2024-08-26 11:32 | XMS_ITS ---
Author Name [facility] Organization Unknown Encounters Encounter Type Encounter Reason Primary Diagnosis Location Date Ambulatory [facility] [place] 11/25/2022 Ambulatory [facility] [place] 11/15/2022
[2024-08-26 14:46] LABS: MANUAL DIFF FLAG NO
[2024-08-26 14:54] LABS: Hematocrit 38.6 % (37.0-47.0); Hemoglobin 12.6 g/dl (12.0-16.0); Imm Gran Abs Auto 0.02 X10*3/uL (0.00-0.03); Imm Gran Pct Auto 0.3 % (0.0-0.4); Lymphocytes Absolute Auto 2.7 X10*3/uL (1.2-4.9); Mean Corpuscular HGB Conc 32.6 g/dl (31.0-35.0); Mean Corpuscular Hemoglobin 30.4 pg (27.0-33.0); Mean Corpuscular Volume 93.0 fL (80.0-98.0); NRBC Abs Auto 0.000 X10*3/uL (0.0-0.012); NRBC Pct Auto 0.0 /100WBC (0.0-0.2); Platelet Count 376 X10*3/uL (160-400); Red Blood Count 4.15 X10*6/uL (4.20-5.50); White Blood Count 8.0 X10*3/uL (4.8-10.8)
[2024-08-26 15:31] LABS: Alanine Aminotransferase 21 U/L (0-31); Albumin Level 3.9 g/dL (3.5-5.0); Alkaline Phosphatase 110 U/L (39-117); Aspartate Amino Transferase 27 U/L (5-31); Gamma Glutamyl Transpeptidase 85 U/L (7-33); Total Protein 6.4 g/dL (6.5-8.0)
[2024-08-27 03:57] LABS: Hepatitis A Antibody IgM 0.18 Index (0-0.79); ~Hepatitis A Antibody IgM Nonreactive (Nonreactive)
[2024-08-27 04:10] LABS: HBS Num1 2.30 mIU/mL (0-7.99); HBc Num1 0.07 S/CO (0.00-0.79); HBsAGNum1 0.39 S/CO (0.00-0.99); Hepatitis A Antibody IgM 0.16 Index (0-0.79); Hepatitis B Surface Antigen Negative (Negative); ~HepC Num1 0.06 S/CO (0.00-0.79); ~Hepatitis A Antibody IgM Nonreactive (Nonreactive); ~Hepatitis B Surface Antibody NONREACTIVE (Nonreactive); ~Hepatitis C Antibody Nonreactive (Nonreactive)
[2024-08-30 21:29] LABS: Alk.Phos Iso. Macrohepatic 0 % (<=0); Alk.Phos Isoenzymes Bone 41 % (28-66); Alk.Phos Isoenzymes Intest 9 % (1-24); Alk.Phos Isoenzymes Liver 50 % (25-69); Alk.Phos Isoenzymes Placental 0 % (<=0); Alk.Phos Isoenzymes Total 105 U/L (37-153)
== END 2024-08-26 10:43 | disposition home or self-care (01) ==
LOC: HO.WFDLDS 10:42
PROVIDERS: Visit Provider Physician Assistant Medical
DX: R74.8 Abnormal levels of other serum enzymes (principal)
CPT/HCPCS: 36415; 80076; 82977; 84080; 85025; 86704; 86706; 86709; 86803; 87340

== ENCOUNTER 2024-09-02 14:33 | Outpatient (AMB) | payer MEDICARE, SELFPAY ==
--- NOTE | 2024-09-02 14:23 | A.OFFPC_ITS ---
Intake Visit Reasons: telehealth review labs Intake Note: Anjana presents for a telehealth lab review. Allergies bee pollen (bee stings) Allergy (Verified 09/02/24 14:25) Hives latex Allergy (Verified 09/02/24 14:25) Hives Tobacco use date assessed: 09/02/24 Dental Screening Dental Screen Date: 09/02/24 Did you have a dental visit in the last 12 months?: Yes Did you have a dental problem in the last 6 months where you did not have access to dental care?: No Was dental information given to patient?: Patient declined HPI HPI Comments History of Present Illness Details This is an 83-year-old female with a past medical history of hypertension, hyperlipidemia, IFG, biliary ductal dilatation, elevated alkaline phosphatase, depression and endometrial cancer who presents to review lab results. She has a history of IBS, biliary ductal dilatation and elevated alkaline phosphatase. She had an appointment with [facility] in November 2023 to follow up on elevated alkaline phosphatase level and biliary ductal dilatation. She reports they told her that the ultrasound showed gallstones. She is not planning to pursue elective surgery. She denies abdominal pain, jaundice, nausea, vomiting, diarrhea, unexplained weight loss. She had lab work done 07/09/2024 which showed alkaline phosphatase increased from 138-207, and her AST and ALT are mildly elevated at 33 and 35. She had blood work done on 08/26/2024 which included a normal CBC with differential, normal AST and ALT and alkaline phosphatase as well as alkaline phosphatase isoenzymes, elevated GGT at a level of 85 and negative testing for hepatitis A, B and C infection. ROS: Constitutional: No unexplained weight loss, fever, chills, fatigue or night sweats. Eyes: No vision changes, blurry vision, double vision Respiratory: No shortness of breath, cough or sputum production. Cardiovascular: No chest pain, chest pressure or chest discomfort. No palpitations or pedal edema. Gastrointestinal: No anorexia, nausea, vomiting or diarrhea. No abdominal pain or blood in stool. [facility] Medical History (Updated 09/03/24 @ 09:07 by EFRAÍN Granado) Elevated liver enzymes Cholelithiasis Urinary frequency Severe obesity (BMI 35.0-39.9) with comorbidity Chronic back pain Osteoarthritis of left knee Hypothyroidism (acquired) Depression History of herpes labialis History of endometrial cancer IFG (impaired fasting glucose) Elevated alkaline phosphatase level Common bile duct dilation Pure hypercholesterolemia Essential hypertension Surgical History (Updated 08/21/23 @ 13:05 by EFRAÍN Granado) History of tonsillectomy History of knee replacement History of cataract surgery Social History (Updated 09/02/24 @ 14:27 by Mihaela Rhodes MA) Housing: House Alcohol intake: never Patient Tobacco Use Status: Former Tobacco user (40 years ago) Tobacco use type: Cigarette e-Cigarette/Vaping Use: Never Used Second Hand Smoke Exposure: No service: No Current occupational status: retired Current occupational exposures/hazards: No Cognitive needs: No Hearing needs: No Vision needs: Yes Questionnaire Thrive Questionnaire Date Thrive assessed: 07/22/24 CORAL-7 AMB Questionnaire CORAL-7 Date CORAL - 7 assessed: 07/22/24 Source: Developed by Drs. Ike Faustin, Katelyn Barrera, Bright Jeffery and colleagues, with an educational heather from [employer]. Physical exam (Primary Care) Tobacco/Smoking Status: Tobacco use Status Tobacco use date assessed 09/02/24 09/02/24 14:28 Patient Tobacco Use Status Former Tobacco user 09/02/24 14:28 Tobacco use type Cigarette 09/02/24 14:28 e-Cigarette/Vaping Use Never Used 09/02/24 14:28 Thrive Assessment: Date of Thrive Assessment Date Thrive assessed 07/22/24 09/02/24 14:28 Telehealth Telehealth Telehealth Platform: Telephone Location of provider rendering services: practice address Location of patient: address on file Patient Identification confirmed using: Name, : Yes Telehealth method: voice only Patient verbally consented to treatment: Yes Patient verbally consented to billing insurance company: Yes Patient informed of any privacy concerns related to visit: Yes Minutes spent on Phone/Video with Pt.: 11 Coding Level of Care Code Tele Est Pt Level 3 (48408) Diagnoses Calculus of gallbladder without cholecystitis without obstruction K80.20 Cholelithiasis location: gallbladder Cholecystitis presence: without cholecystitis Biliary obstruction: without biliary obstruction Elevated liver enzymes R74.8 Common bile duct dilation K83.8 Elevated alkaline phosphatase level R74.8 Assessment & Plan Assessment & Plan (1) Cholelithiasis: Code(s): K80.20 - Calculus of gallbladder without cholecystitis without obstruction Category: Medical Qualifiers: Cholelithiasis location: gallbladder Cholecystitis presence: without cholecystitis Biliary obstruction: without biliary obstruction Qualified Code(s): K80.20 - Calculus of gallbladder without cholecystitis without obstruction (2) Elevated liver enzymes: Code(s): R74.8 - Abnormal levels of other serum enzymes Category: Medical (3) Common bile duct dilation: Code(s): K83.8 - Other specified diseases of biliary tract Category: Medical (4) Elevated alkaline phosphatase level: Code(s): R74.8 - Abnormal levels of other serum enzymes Category: Medical Plan In summary this is an 83-year-old female who had increasing alkaline phosphatase level and elevated AST and ALT in June which have since normalized on repeat labs this month. GGT is elevated which can be seen in the presence of gallstones, however she denies symptoms associated with cholelithiasis or choledocholithiasis. It is reassuring that her enzymes normalized and she has no constitutional symptoms of concern. I have requested notes from Gastroenterology and her last ultrasound. She has a follow up scheduled with her bin piler, and she was encouraged to keep this appointment due to elevated GGT as there was discussion about whether or not to proceed with MRCP. She will schedule a Medicare wellness visit in 6 months.
--- OUTSIDE RECORDS SUMMARY | 2024-09-02 14:40 | XMS_ITS | Clinical Summary ---
Author Organization [facility] Address [address] [place], [place] [address] Care Team Providers Care Human Resources Operations Specialist Name Role Phone Carmen Williamson MD Primary Care Provider [phone] Allergies No known active allergies Medications Medication [...] 1-dose 75+ series) 2016 Influenza Vaccine (#1) 2024 Hepatitis B Vaccines Aged Out No long er eligible based on patient's age to complete this topic RSV Ped < 20 months Aged Out No longe r eligible based on patient's age to complete this topic Care Teams Human Resources Operations Specialist Relationship Specialty Start Date End Date Carmen Williamson MD [address] [place] [address] [place] [address] PCP - General Disassembler 07/01/17
--- OUTSIDE RECORDS SUMMARY | 2024-09-02 14:40 | XMS_ITS | Clinical Summary ---
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
== END 2024-09-02 16:17 | disposition home or self-care (01) ==
LOC: HO.HMCFM 14:33
PROVIDERS: PCP Physician Assistant Medical; Visit Provider Physician Assistant Medical
DX: K80.20 Calculus of gallbladder without cholecystitis without obstruction (principal); R74.8 Abnormal levels of other serum enzymes; K83.8 Other specified diseases of biliary tract

== ENCOUNTER 2024-09-21 10:08 | Outpatient (AMB) | payer MEDICARE, SELFPAY ==
[2024-09-21 10:19] VITALS: BMI 37.4
--- NOTE | 2024-09-21 10:19 | A.OFFVIS_ITS ---
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 Rios. She reports mild intermittent discomfort in both of her knees. She continues to walk for exercise. She denies any fevers or chills. Allergies bee pollen (bee stings) Allergy (Verified 09/21/24 10:23) Hives latex Allergy (Verified 09/21/24 10:23) Hives Medication List - Last Reconciled 09/21/24 by Marquez Rios MD acetaminophen 325 mg PO QID PRN amoxicillin 2,000 mg (4 x 500 mg) PO ONCE biotin 5 mg PO DAILY cyanocobalamin (vitamin B-12) 1,000 mcg orally Every other day; lactobacillus combination no.4 (Probiotic) 3,000 mmu cells PO DAILY levothyroxine 75 mcg PO DAILY losartan 100 mg PO DAILY oxycodone-acetaminophen 5-325 mg (Percocet) 1 tab PO Q8H PRN 28 days simvastatin 40 mg PO BEDTIME tizanidine 2 mg PO Q8H PRN valacyclovir (Valtrex) 2,000 mg (2 x 1 gram) PO BID 1 day PFSH Medical History (Updated 09/17/24 @ 08:52 by Marquez Rios MD) Cyst of right kidney Elevated liver enzymes Cholelithiasis Urinary frequency Severe obesity (BMI 35.0-39.9) with comorbidity Chronic back pain Osteoarthritis of left knee Hypothyroidism (acquired) Depression History of herpes labialis History of endometrial cancer IFG (impaired fasting glucose) Elevated alkaline phosphatase level Common bile duct dilation Pure hypercholesterolemia Essential hypertension Surgical History (Updated 08/21/23 @ 13:05 by EFRANÍ Granado) History of tonsillectomy History of knee replacement History of cataract surgery Social History (Updated 09/02/24 @ 14:27 by Mihaela Rhodes MA) Housing: House Alcohol intake: never Patient Tobacco Use Status: Former Tobacco user (40 years ago) Tobacco use type: Cigarette e-Cigarette/Vaping Use: Never Used Second Hand Smoke Exposure: No service: No Current occupational status: retired Current occupational exposures/hazards: No Cognitive needs: No Hearing needs: No Vision needs: Yes Physical Exam Vital Signs: BMI result Body Mass Index 37.4 Const Other: Well-nourished well-developed very friendly female awake alert and oriented x3 in no acute distress Extrem Other: Bilateral lower extremity examination shows good capillary refill, no skin lesions noted, normal sensation light touch Bilateral knee examination shows that the surgical incisions are well healed, full active extension and flexion to 120 degrees, her patellae track well Results Reviewed Results Reviewed: X-rays of the patient's bilateral knee show total knee arthroplasties in good position with no signs of loosening, no acute bony abnormalities Assessment & Plan Assessment & Plan (1) Bilateral knee pain: Code(s): M25.561 - Pain in right knee; M25.562 - Pain in left knee Category: Medical Plan Ms. Melendez continues to do very well after undergoing bilateral total knee replacement surgeries. She will continue with her home exercise program. She does know to take antibiotics before any dental work. She will contact me prior to her annual follow-up appointment should any questions or concerns arise. Feel free to call me at any time should questions regarding her orthopedic management arise. I spent 20 minutes in reviewing the patient's records and imaging studies, seeing the patient and documenting in the medical record. Orders: Orders XR Knee Yahir 3V Today M25.561 - Pain in right knee, M25.562 - Pain in left knee Medications: Refilled amoxicillin Take four caps (2,000 mg) one hour before any dental work. 2,000 mg (4 x 500 mg) PO ONCE 20 caps 3RF Coding Level of Care Code Est Pt Level 3 (82342) Complex EM visit Add On G2211 Diagnoses Bilateral knee pain M25.561; M25.562
--- OUTSIDE RECORDS SUMMARY | 2024-09-21 10:56 | XMS_ITS | Clinical Summary ---
Author Organization [facility] Address [address] [place] [id number] Care Team Providers Care Label Machine Operator Name Role Phone Carmen Williamson MD Primary Care Provider [phone] Surgical History Surgery Date Site/Laterality Comments OOPHORECTOMY [...] nts (1 - 1-dose 75+ series) 2016 Falls Risk Assessment 01/26/2022 Osteoporosis Screening (Bone Density Screening) 01/26/2022 Social Influencers of Health Screening 01/26/2022 COVID-19 Vaccine (1 - 2023-2 5 season) 2023 Depression Screening 02/25/2024 Influenza Vaccine (#1) 2024 HIB Vaccines Aged [...] Documents on File Type Date Recorded Patient [facility] 11/11/2017 AD MARK DIRECTIVE Care Teams Label Machine Operator Relationship Specialty Start Date End Date Carmen Williamson MD [address] [place] [address] PCP - General Small Appliance Assembly Supervisor 07/01/17
--- OUTSIDE RECORDS SUMMARY | 2024-09-21 10:56 | XMS_ITS | Clinical Summary ---
Author Organization [facility] Address [address] [place], [place] [address] Care Team Providers Care Riveter Automobile Brakes Name Role Phone Carmen Williamson MD Primary Care Provider [phone] Allergies No known active allergies Medications Medication [...] age to complete this topic Care Teams Riveter Automobile Brakes Relationship Specialty Start Date End Date Carmen Williamson MD [address] [place] [address] [place] [address] PCP - General Tanker Truck Driver 07/01/17
--- OUTSIDE RECORDS SUMMARY | 2024-09-21 10:56 | XMS_ITS | Patient Health Record ---
Author Organization [facility] Address [address] [place] [address] Care Team Providers Care Cia Agent Name Role Phone VICTOR HUGO (RETIRED) GREGG STAHL Primary Care Provid er Unavailable Belinda Mcgee Unavailable [phone] Allergies Allergen (clinical drug ingredient) Drug/Non Drug [...] Status Risk Notes Problem Postmenopausal atrophic vaginitis (70126141) Postmenopausal atrophic vaginitis (N95.2) Active confirmed Problem Postmenopausal bleeding (85499491) Postmenopausal bleeding (N95.0) Active confirmed Problem Essential hypertension (49588679) Essential (primary) hypertension (I10) Active confirmed Problem Hypothyroidism (25426894) Hypothyroidism, unspecified (E03.9) Active confirmed Problem Malignant neoplasm of corpus uteri, excluding isthmus (193467094) Malignant neoplasm of endometrium (C54.1) Active confirmed Problem Hyperlipidemia (39545328) Other hyperlipidemia (E78.4) Active confirmed Problem Recurrent depression (939705383) Other recurrent depressive disorders (F33.8) Active confirmed Problem Osteoarthritis (928066802) Unspecified osteoarthritis, unspecified site (M19.90) Active confirmed Problem Atrophy of vulva (981230531) 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) Active confirmed Problem Personal history of primary malignant neoplasm of female genital organ (077757003) Personal history of malignant neoplasm of other parts of uterus (Z85.42) Active confirmed Problem Menopause (086654284) Menopausal and female climacteric states (N95.1) Active confirmed Problem Body mass index 35.00 to 39.99 (567744740960212) Body mass index [BMI] 37.0-37.9, adult (Z68.37) Active confirmed Problem Vitamin B-complex deficiency (842592243) Other B-complex deficiencies (266.2) Active confirmed Major Problem Menopausal symptom (27581245) Symptomatic menopausal or female climacteric states (627.2) Active confirmed Major Problem Abdominal (74329099) Abdominal (633.0) Active confirmed Diag Plan Of Treatment Next Appt Details Provider Name:Belinda monk, 09/30/2024 01:40:00 PM, [address] [place] [address], [address], [place], [address], Insurance Providers Payer Name Payer Address Payer Phone Subscriber Number Group Number Insured Name Patient Relationship to Insured Coverage Start Date Coverage End Date MEDICARE [address] [place]ENY [place] [id number] THOMAS STACY Self - patient is the insured MEDEX [address] [place] [address] [phone] [id number] THOMAS STACY Self - patient is [...]
== END 2024-09-21 10:40 | disposition home or self-care (01) ==
LOC: HO.HOS 10:09
PROVIDERS: PCP Physician Assistant Medical; Visit Provider Orthopaedic Surgery
DX: M25.561 Pain in right knee (principal); M25.562 Pain in left knee
CPT/HCPCS: 99213; G2211

== ENCOUNTER → 2024-09-21 10:11 | Outpatient (BNV) | payer MEDICARE, SELFPAY | PROVIDERS: Visit Provider Radiology Diagnostic Radiology | DX: M25.561 Pain in right knee (principal); M25.562 Pain in left knee | CPT/HCPCS: 73562 ==

== ENCOUNTER 2024-09-21 10:22 | Outpatient (REF) | payer MEDICARE, SELFPAY ==
--- NOTE | ~2024-09-21 | XR_ITS ---
Exam: X-ray, bilateral knees.XR KNEE 3 VIEWS BILATERAL TECHNIQUE: Three views lower extremity joint, bilateral knees INDICATION: Bilateral knee pain COMPARISON: None available. FINDINGS: RIGHT KNEE: Total knee arthroplasty has been performed. Linear ossification is present anterior to the distal femoral metadiaphysis, cephalad to the femoral component. There is a joint effusion. There is anatomic alignment. LEFT KNEE: Total knee arthroplasty has been performed. There is a joint effusion. Components are anatomically aligned. There is increased attenuation of Hoffa's fat pad. XR/XR Knee Yahir 3V IMPRESSION: Right knee: Joint effusion. Total knee arthroplasty. Linear ossification is present anterior to the cortex of the distal femur of uncertain significance. No fracture is evident. This could be related to healing after periosteal stripping. Left knee: Joint effusion. Total knee arthroplasty. There is increased density in Hoffa's fat pad that could be related to edema. Electronically signed by: Israel Foote MD 09/21/2024 10:28 AM EDT
--- OUTSIDE RECORDS SUMMARY | 2024-09-22 11:13 | XMS_ITS | Patient Health Record ---
Author Organization [facility] Address [address] [place] [address] Care Team Providers Care Newspaper Editor Managing Name Role Phone VICTOR HUGO (RETIRED) GREGG STAHL Primary Care Provid er Unavailable Belinda Mcgee Unavailable [phone] Allergies Allergen (clinical drug ingredient) Drug/Non Drug [...] Status Risk Notes Problem Postmenopausal atrophic vaginitis (47372421) Postmenopausal atrophic vaginitis (N95.2) Active confirmed Problem Postmenopausal bleeding (84242227) Postmenopausal bleeding (N95.0) Active confirmed Problem Essential hypertension (52322198) Essential (primary) hypertension (I10) Active confirmed Problem Hypothyroidism (58164186) Hypothyroidism, unspecified (E03.9) Active confirmed Problem Malignant neoplasm of corpus uteri, excluding isthmus (491556029) Malignant neoplasm of endometrium (C54.1) Active confirmed Problem Hyperlipidemia (35363702) Other hyperlipidemia (E78.4) Active confirmed Problem Recurrent depression (612302998) Other recurrent depressive disorders (F33.8) Active confirmed Problem Osteoarthritis (690022943) Unspecified osteoarthritis, unspecified site (M19.90) Active confirmed Problem Atrophy of vulva (737741605) 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) Active confirmed Problem Personal history of primary malignant neoplasm of female genital organ (488701507) Personal history of malignant neoplasm of other parts of uterus (Z85.42) Active confirmed Problem Menopause (145907162) Menopausal and female climacteric states (N95.1) Active confirmed Problem Body mass index 35.00 to 39.99 (642581209105054) Body mass index [BMI] 37.0-37.9, adult (Z68.37) Active confirmed Problem Vitamin B-complex deficiency (137223325) Other B-complex deficiencies (266.2) Active confirmed Major Problem Menopausal symptom (57678939) Symptomatic menopausal or female climacteric states (627.2) Active confirmed Major Problem Abdominal (11097576) Abdominal (633.0) Active confirmed Diag Plan Of Treatment Next Appt Details Provider Name:Belinda monk, 09/30/2024 01:40:00 PM, [address] [place] [address], [address], [place], [address], Insurance Providers Payer Name Payer Address Payer Phone Subscriber Number Group Number Insured Name Patient Relationship to Insured Coverage Start Date Coverage End Date MEDICARE [address] BENY [place] [id number] THOMAS STACY Self - patient is the insured MEDEX [address] [place] [address] [id number] THOMAS STACY Self - patient is [...]
--- OUTSIDE RECORDS SUMMARY | 2024-09-22 11:13 | XMS_ITS | Clinical Summary ---
Author Organization [facility] Address [address] [place], [place] [address] Care Team Providers Care Special Delivery Mail Carrier Name Role Phone Carmen Williamson MD Primary Care Provider [phone] Allergies No known active allergies Medications Medication [...] age to complete this topic Care Teams Special Delivery Mail Carrier Relationship Specialty Start Date End Date Carmen Williamson MD [address] [place] [address] [place] [address] PCP - General Supervisor Education 07/01/17
--- OUTSIDE RECORDS SUMMARY | 2024-09-22 11:13 | XMS_ITS | Clinical Summary ---
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
== END 2024-09-21 10:23 | disposition home or self-care (01) ==
LOC: HO.HOSX 10:22
PROVIDERS: Visit Provider Orthopaedic Surgery
DX: M25.561 Pain in right knee (principal); M25.562 Pain in left knee; Z79.899 Other long term (current) drug therapy; Z96.653 Presence of artificial knee joint, bilateral
CPT/HCPCS: 73562; 99212